=== PATIENT | male | born 1980 | race Caucasian/White ===

== ENCOUNTER 2024-04-05 17:40 | Emergency (ER) | payer BC, SELFPAY ==
[2024-04-05 17:42] VITALS: BP 140/87; PULSE 82; TEMP 36.8; O2SAT 98; BMI 28.9
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
[2024-04-05] MEDS: ACETAMINOPHEN 500 MG TABLET 1000 MG PO (19:54)
[2024-04-05] MEDS: ONDANSETRON 4 MG RAPDIS TABLET SL (19:54)
[2024-04-05] MEDS: IBUPROFEN 400 MG TABLET 800 MG PO (19:54)
== END 2024-04-05 19:57 ==
PROVIDERS: Emergency Provider Student in an Organized Health Care Education/Training Program
DX: S06.0X0A Concussion without loss of consciousness, initial encounter (principal); S16.1XXA Strain of muscle, fascia and tendon at neck level, initial encounter; S00.81XA Abrasion of other part of head, initial encounter; Y08.89XA Assault by other specified means, initial encounter
CPT/HCPCS: 12011; 70450; 72125; 99285; Q0162

== ENCOUNTER 2024-05-15 14:31 | Outpatient (RCR) | payer BC, SELFPAY | END 2024-05-24 07:38 | disposition home or self-care (01) | LOC: PT 14:31 | PROVIDERS: Visit Provider Orthopaedic Surgery | DX: M25.562 Pain in left knee (principal) | CPT/HCPCS: 97110; 97112; 97162; 97530 ==

== ENCOUNTER 2024-09-01 20:55 | Emergency (ER) | payer BC, SELFPAY ==
[2024-09-01 20:59] VITALS: BP 141/94; PULSE 90; TEMP 36.6; O2SAT 96; BMI 30.4
--- OUTSIDE RECORDS SUMMARY | 2024-09-01 21:03 | XMS_ITS | CCD ---
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 Name Role Phone TERESE, DR MEENA Murillo Attending Unavailable TERESE, DR MEENA Murillo Consulting Unavailable REQUEST, NONE LISTED Primary Care Unavaila glenny GUDINO, DR MEENA Murillo Admitting Unavailable LUCI COREAS Consulting Unavailable BJORN JONES Attending Unavailable BJORN JONES Consulting Unavailable BJORN JONES Admitting Unavailable REQUEST, NONE LISTED Primary Care UnavailRudy Ashby Attending Unavailable [facility] Services Primary Care Provider DO Milind Harvey Attending Provider Milind Harvey DO Attending Provider [facility] Services Primary Care Unavaila Milind Cobb Admitting Unavailable Milind Harvey Attending Unavailable [facility] Services Primary Care Unavaila Milind Cobb Admitting Unavailable Milind Harvey Attending Unavailable [facility] Services Primary Care Unavaila Reza Hopper Admitting Unavailab Reza Obrien Attending Unavailab Milind Arriaga Admitting Unavailable [facility] Services Primary Care Unavaila Milind Cobb Attending Unavailable [facility] Services Primary Care Unavaila Milind Cobb Admitting Unavailable Milind Harvey Attending Unavailable Medications Current Medications Medication Drug Class(es) Dates Sig (Normalized) Sig (Original) acetaminophen 500 mg oral tablet (1 source) Start: 05-02-2024 take 2 tablets by mouth every six hours as needed for pain Acetaminophen (Tylenol Extra Strength) 500 mg tablet Active 1000 MG PO Every 6 hours as needed for pain May 02, 2024 12:00am ibuprofen 200 mg oral capsule (3 sources) Nonsteroidal Anti-inflammatory Drug Start: 02-19-2024 Ibuprofen (Motrin Ib) 200 mg capsule Active 800 MG PO Every 8 hours as needed for pain February 19, 2024 12:00am Start: 02-19-2024 take 1 capsule by [facility] every six hours Ibuprofen (Motrin Ib) 200 mg capsule Active 200 MG PO Every 6 hours February 19, 2024 12:00am Completed/Discontinued Medications Medication Drug Class(es) Dates Sig (Normalized) Sig (Original) meloxicam 15 mg oral tablet (1 source) Nonsteroidal Anti-inflammatory Drug Start: 02-20-2024 End: 05-02-2024 take 1 tablet by mouth once daily Meloxicam 15 mg tablet Discontinued 15 MG PO Daily February 20, 2024 12:00am May 02, 2024 2:54pm Problems Active Problems Problem Classification Problem Date Documented Da te Episodic/Chronic Joint disorders and dislocations; trauma-related (3 sources) Derangement of left knee; Translations: [Unspecified internal derangement of left knee] Onset: 04-10-2024 02-19-2024 Chronic Other non-traumatic joint disorders (3 sources) Pain in right knee; Translations: [Right knee pain] 02-19-2024 Episodic Comment on above: from an anccident Substance-related disorders (5 sources) Other stimulant abuse, uncomplicated; Translations: [Cannabis abuse, uncomplicated] Onset: 10-21-2021 Chronic Past or Other Problems Problem Classification Problem Date Documented Da te Episodic/Chronic E Codes: Fall (1 source) Fall (on) (from) unspecified stairs and steps, initial encounter; Translations: [FALL ON FROM UNS STAIRS STEPS INIT] Onset: 05-16-2021 Episodic Joint disorders and dislocations; trauma-related (3 sources) Other tear of medial meniscus, current injury, left knee, initial encounter; Translations: [Tear of medial meniscus of left knee] Onset: 05-07-2024 04-14-2024 Episodic Other injuries and conditions due to external causes (3 sources) Unspecified injury of left elbow, initial encounter; Translations: [UNSPECIFIED INJURY LT ELBOW INITIAL] Onset: 05-14-2021 Episodic Other non-traumatic joint disorders (1 source) Pain in left knee; Translations: [Pain in left knee] Onset: 02-19-2024 Episodic Sprains and strains (10 sources) Injury of articular cartilage of right knee joint; Translations: [Sprain of other specified parts of right knee, initial encounter] Onset: 04-10-2024 02-19-2024 Episodic Superficial injury; contusion (1 source) Contusion of left elbow, initial encounter; Translations: [CONTUSION LEFT ELBOW INITIAL ENC] Onset: 05-16-2021 Episodic Results Test Name Value Interpretation Reference Range Facility Drug Screen,Urineon 05-07-19 Amphetamine Screen,Urine Negative Normal Negative [facility] Comment on above: Performed By: #### U RDS #### [address] Barbiturate Screen,Urine Negative Normal Negative [facility] Comment on above: Performed By: #### U RDS #### [place] [address] [place] Benzodiazepines Screen,Urine Negative Normal Negative [facility] Comment on above: Performed By: #### U RDS #### [place] [address] [place] Cannabinoid Screen,Urine Positive High Negative [facility] Comment on above: Result Comment: Thes e are unconfirmed results and should not be used for legal purposes. Drug Cut-Off Concentration: AMPH 1000 ng/mL KEV 200 ng/mL ALCON 200 ng/mL COCM 300 ng/mL OP 300 ng/mL PCP 25 ng/mL THC 20 ng/mL PERFORMED BY: [place] [address] PATHOLOGIST SIGNAL CONSTRUCTOR INDIO MOREIRA M.D. Performed By: #### U RDS #### [place] [address] [place] Cocaine Screen,Urine Negative Normal Negative [facility] Comment on above: Performed By: #### U RDS #### [place] [address] [place] Opiate Screen,Urine Negative Normal Negative [facility] Comment on above: Performed By: #### U RDS #### [place] [address] [place] Phencyclidine Screen,Urine Negative Normal Negative [facility] Comment on above: Performed By: #### U RDS #### [facility] [address] Alanine aminotransferase [En zymatic activity/volume] in Serum or PlasmaOrdered By: Milind Harvey on 05-02-2024 ALT [Catalytic activity/Vol] Alanine aminotransferase [Enzymatic activity/volume] in Serum or Plasma 7-[address] [facility] Albumin [Mass/volume] in Ser um or Plasma by Bromocresol green (BCG) dye binding methoOrdered By: Milind Harvey on 05-02-2024 Albumin BCG dye [Mass/Vol] Albumin [Mass/volume] in Serum or Plasma by Bromocresol green (BCG) dye binding metho 3.5-5.[address] [facility] Alkaline phosphatase [Enzyma tic activity/volume] in Serum or PlasmaOrdered By: Milind Harvey on 05-02-2024 ALP [Catalytic activity/Vol] Alkaline phosphatase [Enzymatic activity/volume] in Serum or Plasma 34-[address] [facility] Aspartate aminotransferase [ Enzymatic activity/volume] in Serum or PlasmaOrdered By: Milind Harvey on 05-02-2024 AST [Catalytic activity/Vol] Aspartate aminotransferase [Enzymatic activity/volume] in Serum or Plasma 13-[address] [facility] Basophils Auto (Bld) [#/Vol] Ordered By: Milind Harvey on 05-02-2024 Basophils (Bld) [#/Vol] Automated basoph il count 0.0-0.[address] [facility] Basophils/100 WBC Auto (Bld) Ordered By: Milind Harvey on 05-02-2024 Basophils/100 WBC (Bld) Automated basophil % . [facility] Bilirubin.total [Mass/volume ] in Serum or PlasmaOrdered By: Milind Harvey on 05-02-2024 Bilirubin [Mass/Vol] Bilirubin.total [Mass/volume] in Serum or Plasma 0.3-1.[address] [facility] CMP with reflex to A1Con Albumin [Mass/Vol] 4.6 g/dL Normal 3.5-5.7 [facility] Comment on above: Performed By: #### C MP wRFX A1C, CBC #### [facility] [address] Albumin/Globulin [Mass ratio] 1.8 {ratio} Normal [facility] Comment on above: Performed By: #### C MP wRFX A1C, CBC #### [facility] [address] ALP [Catalytic activity/Vol] 62 U/L Normal 34-104 [facility] Comment on above: Result Comment: PERF ORMED BY: [place] [address] PATHOLOGIST SIGNAL CONSTRUCTOR INDIO MOREIRA M.D. Performed By: #### C MP wRFX A1C, CBC #### [address] ALT [Catalytic activity/Vol] 18 U/L Normal 7-52 [facility] Comment on above: Performed By: #### C MP wRFX A1C, CBC #### [address] Anion gap [Moles/Vol] 11.3 mmol/L Normal 6.0-15.0 [facility] Comment on above: Performed By: #### C MP wRFX A1C, CBC #### [address] AST [Catalytic activity/Vol] 17 U/L Normal 13-39 [facility] Comment on above: Performed By: #### C MP wRFX A1C, CBC #### [place] [address] [place] Bilirubin [Mass/Vol] 0.4 mg/dL Normal 0.3-1.0 [facility] Comment on above: Performed By: #### C MP wRFX A1C, CBC #### [facility] [address] [place] [address] [place] Calcium [Mass/Vol] 9.2 mg/dL Normal 8.6-10.3 [facility] Comment on above: Performed By: #### C MP wRFX A1C, CBC #### [facility] [address] [place] [address] [place] Chloride [Moles/Vol] 108 mmol/L High 98-107 [facility] Comment on above: Performed By: #### C MP wRFX A1C, CBC #### [address] CO2 [Moles/Vol] 23.6 mmol/L Normal 21.0-31.0 [facility] Comment on above: Performed By: #### C MP wRFX A1C, CBC #### [address] Creatinine [Mass/Vol] 0.81 mg/dL Normal 0.70-1.30 [facility] Comment on above: Performed By: #### C MP wRFX A1C, CBC #### [place] [address] [place] GFR/1.73 sq M.predicted MDRD (S/P/Bld) [Vol rate/Area] mL/min/{1.73_m2} Normal [facility] Comment on above: Performed By: #### C MP wRFX A1C, CBC #### [address] Globulin (S) [Mass/Vol] 2.6 g/dL Normal [facility] Comment on above: Performed By: #### C MP wRFX A1C, CBC #### [place] [address] [place] Glucose [Mass/Vol] 92 mg/dL Normal 70-100 [facility] Comment on above: Performed By: #### C MP wRFX A1C, CBC #### [place] [address] [place] Potassium [Moles/Vol] 3.9 mmol/L Normal 3.5-5.1 [facility] Comment on above: Performed By: #### C MP wRFX A1C, CBC #### [address] Protein [Mass/Vol] 7.2 g/dL Normal 6.4-8.9 [facility] Comment on above: Performed By: #### C MP wRFX A1C, CBC #### [facility] [address] Sodium [Moles/Vol] 139 mmol/L Normal 136-145 [facility] Comment on above: Performed By: #### C MP wRFX A1C, CBC #### [facility] [address] Urea nitrogen [Mass/Vol] 14 mg/dL Normal 7-25 [facility] Comment on above: Performed By: #### C MP wRFX A1C, CBC #### [facility] [address] [place] [address] [place] Calcium [Mass/volume] in Ser um or PlasmaOrdered By: Milind Harvey on 05-02-2024 Calcium [Mass/Vol] Calcium [Mass/volume] in Serum or Plasma 8.6-10.[address] [facility] Carbon dioxide, total [Moles /volume] in Serum or PlasmaOrdered By: Milind Harvey on 05-02-2024 CO2 [Moles/Vol] Carbon dioxide, total [Moles/volume] in Serum or Plasma 21.0-31.[address] [facility] Chloride [Moles/volume] in S ying or PlasmaOrdered By: Milind Harvey on 05-02-2024 Chloride [Moles/Vol] Chloride [Moles/volume] in Serum or Plasma High 98-[address] [facility] Complete Blood Count Auto Di ffon 05-02-2024 Basophils (Bld) [#/Vol] 0.1 10*3/uL Normal 0.0-0.2 [facility] Comment on above: Result Comment: PERF ORMED BY: [place] [address] PATHOLOGIST SIGNAL CONSTRUCTOR INDIO MOREIRA M.D. Performed By: #### C MP wRFX A1C, CBC #### [facility] [address] [place] [address] [place] Basophils/100 WBC (Bld) 0.7 % Normal . [facility] Comment on above: Performed By: #### C MP wRFX A1C, CBC #### [facility] [address] [place] [address] [place] Eosinophils (Bld) [#/Vol] 0.2 10*3/uL Normal 0.0-0.45 [facility] Comment on above: Performed By: #### C MP wRFX A1C, CBC #### [address] Eosinophils/100 WBC (Bld) 2.2 % Normal . [facility] Comment on above: Performed By: #### C MP wRFX A1C, CBC #### [address] Erythrocyte distribution width (RBC) [Ratio] 13.1 % Normal 12.0-14.[address] [facility] Comment on above: Performed By: #### C MP wRFX A1C, CBC #### [address] Hematocrit (Bld) [Volume fraction] 41.1 % Normal 38.8-50.0 [facility] Comment on above: Performed By: #### C MP wRFX A1C, CBC #### [address] Hemoglobin (Bld) [Mass/Vol] 14.3 g/dL Normal 13.0-17.0 [facility] Comment on above: Performed By: #### C MP wRFX A1C, CBC #### [address] Lymphocytes (Bld) [#/Vol] 2.9 10*3/uL Normal 1.00-4.8 [facility] Comment on above: Performed By: #### C MP wRFX A1C, CBC #### [place] [address] [place] Lymphocytes/100 WBC (Bld) 33.6 % Normal . [facility] Comment on above: Performed By: #### C MP wRFX A1C, CBC #### [address] MCH (RBC) [Entitic mass] 30.7 pg Normal 27.5-35.2 [facility] Comment on above: Performed By: #### C MP wRFX A1C, CBC #### [facility] [address] MCV (RBC) [Entitic vol] 88.4 fL Normal 83.5-101 [facility] Comment on above: Performed By: #### C MP wRFX A1C, CBC #### [address] Mean Corpuscular HGB Conc 34.7 g/dL Normal 32.5-35.6 [facility] Comment on above: Performed By: #### C MP wRFX A1C, CBC #### [address] Monocytes (Bld) [#/Vol] 0.6 10*3/uL Normal 0.0-0.8 [facility] Comment on above: Performed By: #### C MP wRFX A1C, CBC #### [address] Monocytes/100 WBC (Bld) 7.2 % Normal . [facility] Comment on above: Performed By: #### C MP wRFX A1C, CBC #### [address] Neutrophils (Bld) [#/Vol] 4.9 10*3/uL Normal 1.8-7.7 [facility] Comment on above: Performed By: #### C MP wRFX A1C, CBC #### [place] [address] [place] Neutrophils/100 WBC (Bld) 56.3 % Normal . [facility] Comment on above: Performed By: #### C MP wRFX A1C, CBC #### [place] [address] [place] NRBC% 0.1 /100{WBC} Normal 0-0.5 [facility] Comment on above: Performed By: #### C MP wRFX A1C, CBC #### [address] Platelet mean volume (Bld) [Entitic vol] 7.3 fL Normal 6.6-10.[address] [facility] Comment on above: Performed By: #### C MP wRFX A1C, CBC #### [facility] [address] [place] [address] [place] Platelets (Bld) [#/Vol] 305 10*3/uL Normal 150-450 [facility] Comment on above: Performed By: #### C MP wRFX A1C, CBC #### [facility] [address] [place] [address] [place] RBC (Bld) [#/Vol] 4.65 10*6/uL Normal 3.90-5.60 [facility] Comment on above: Performed By: #### C MP wRFX A1C, CBC #### [facility] [address] [place] [id number] [facility] WBC (Bld) [#/Vol] 8.7 10*3/uL Normal 4.1-10.5 [facility] Comment on above: Performed By: #### C MP wRFX A1C, CBC #### [facility] [address] Creatinine [Mass/volume] in Serum or PlasmaOrdered By: Milind Harvey on 05-02-2024 Creatinine [Mass/Vol] Creatinine [Mass/volume] in Serum or Plasma 0.70-1.[address] [facility] ECG 12 lead ECGon 05-02-2024 ECG 12 lead ECG [facility] [place] [address] Electrocardiograph Report Signed Patient: Michael Macedo MR#: [id number] 2 : 1980 Acct:[id number] Age/Sex: 44 / M ADM Date: 05/02/24 Loc: Room: Type: [facility] Attending Dr: Milind Harvey DO Ordering Provider: Milind Harvey DO Date of Service: 05/02/24 ECG/ECG 12 lead ECG: Pre op Copies to: Test Reason : Blood Pressure : */* mmHG Vent. Rate : 76 BPM Atrial Rate : 76 BPM P-R Int : 178 ms QRS Dur : 88 ms QT Int : 360 ms P-R-T Axes : 58 43 30 degrees QTcB Int : 405 ms Normal sinus rhythm Normal ECG When compared with ECG of 29-Jul-2016 09:52, No significant change was found Confirmed by LITO EVANS [facility], JOSEFINA ([id number]) on 05/03/2024 12:46:29 PM Referred By: Electronically Signed By: JOSEFINA CAMPBELL MD FAC Transcribed By: MUS Signed By Josefina Campbell MD, [facility] 05/03/24 1246 Normal [facility] Eosinophils Auto (Bld) [#/Vo l]Ordered By: Milind Harvey on 05-02-2024 Eosinophils (Bld) [#/Vol] Automated eosinophil count 0.0-0.[address] [facility] Eosinophils/100 WBC Auto (Bl d)Ordered By: Milind Harvey on 05-02-2024 Eosinophils/100 WBC (Bld) Automated eosinophil % . [facility] Erythrocyte distribution wid th Auto (RBC) [Ratio]Ordered By: Milind Harvey on 05-02-2024 Erythrocyte distribution width (RBC) [Ratio] Erythrocyte distribution width [Ratio] by Automated count 12.0-14.[address] [facility] Globulin Calc (S) [Mass/Vol] Ordered By: Milind Harvey on 05-02-2024 Globulin (S) [Mass/Vol] Serum globulin measurement by calculation (mass/volume) [facility] Glucose [Mass/volume] in Ser um or PlasmaOrdered By: Milind Harvey on 05-02-2024 Glucose [Mass/Vol] Glucose [Mass/volume] in Serum or Plasma 70-[address] [facility] Hematocrit Auto (Bld) [Volum e fraction]Ordered By: Milind Harvey on 05-02-2024 Hematocrit (Bld) [Volume fraction] Hematocrit [Volume Fraction] of Blood by Automated count 38.8-50.[address] [facility] Hemoglobin [Mass/volume] in BloodOrdered By: Milind Harvey on 05-02-2024 Hemoglobin (Bld) [Mass/Vol] Hemoglobin [Mass/volume] in Blood 13.0-17.[address] [facility] Leukocytes [#/volume] correc miguel for nucleated erythrocytes in Blood by Automated counOrdered By: Milind Harvey on 05-02-2024 WBC corrected for nucl RBC Auto (Bld) [#/Vol] Leukocytes [#/volume] corrected for nucleated erythrocytes in Blood by Automated coun 4.1-10.[address] [facility] Lymphocytes Auto (Bld) [#/Vo l]Ordered By: Milind Harvey on 05-02-2024 Lymphocytes (Bld) [#/Vol] Lymphocytes [#/volume] in Blood by Automated count 1.00-4.[address] [facility] Lymphocytes/100 WBC Auto (Bl d)Ordered By: Milind Harvey on 05-02-2024 Lymphocytes/100 WBC (Bld) Lymphocytes/100 leukocytes in Blood by Automated count . [facility] MCH Auto (RBC) [Entitic mass ]Ordered By: Milind Harvey on 05-02-2024 MCH (RBC) [Entitic mass] MCH [Entitic ma ss] by Automated count 27.5-35.[address] [facility] MCHC Auto (RBC) [Mass/Vol]Or dered By: Milind Harvey on 05-02-2024 MCHC (RBC) [Mass/Vol] MCHC [Mass/volume] by Automated count 32.5-35.[address] [facility] MCV Auto (RBC) [Entitic vol] Ordered By: Milind Harvey on 05-02-2024 MCV (RBC) [Entitic vol] MCV [Entitic vol ume] by Automated count 83.5-[address] [facility] Monocytes Auto (Bld) [#/Vol] Ordered By: Milind Harvey on 05-02-2024 Monocytes (Bld) [#/Vol] Automated blood monocyte count 0.0-0.[address] [facility] Monocytes/100 WBC Auto (Bld) Ordered By: Milind Harvey on 05-02-2024 Monocytes/100 WBC (Bld) Automated monocyte % . [facility] Neutrophils Auto (Bld) [#/Vo l]Ordered By: Milind Harvey on 05-02-2024 Neutrophils (Bld) [#/Vol] Neutrophils [#/volume] in Blood by Automated count 1.8-7.[address] [facility] Neutrophils/100 WBC Auto (Bl d)Ordered By: Milind Harvey on 05-02-2024 Neutrophils/100 WBC (Bld) Automated neutrophil % . [facility] No Panel InformationOrdered By: Milind Harvey on 05-02-2024 Estimated GFR (CKD-EPI) > 60.0 mL/Min [facility] Creatinine Clearance (Chem N/A [facility] Nucleated erythrocytes [Pres ence] in Blood by Automated countOrdered By: Milind Harvey on 05-02-2024 Nucleated RBC Auto Ql (Bld) Nucleated erythrocytes [Presence] in Blood by Automated count 0-0.[address] [facility] Platelet mean volume Auto (B ld) [Entitic vol]Ordered By: Milind Harvey on 05-02-2024 Platelet mean volume (Bld) [Entitic vol] Platelet mean volume [Entitic volume] in Blood by Automated count 6.6-10.[address] [facility] Platelets Auto (Bld) [#/Vol] Ordered By: Milind Harvey on 05-02-2024 Platelets (Bld) [#/Vol] Platelets [#/vol ume] in Blood by Automated count 150-[address] [facility] Potassium [Moles/volume] in Serum or PlasmaOrdered By: Milind Harvey on 05-02-2024 Potassium [Moles/Vol] Potassium [Moles/volume] in Serum or Plasma 3.5-5.[address] [facility] Protein [Mass/volume] in Ser um or PlasmaOrdered By: Milind Harvey on 05-02-2024 Protein [Mass/Vol] Protein [Mass/volume] in Serum or Plasma 6.4-8.[address] [facility] RBC Auto (Bld) [#/Vol]Ordere d By: Milind Harvey on 05-02-2024 RBC (Bld) [#/Vol] Erythrocytes [#/volume] in Blood by Automated count 3.90-5.[address] [facility] Serum or plasma albumin/glob ulin mass ratioOrdered By: Milind Harvey on 05-02-2024 Albumin/Globulin [Mass ratio] Serum or plasma albumin/globulin mass ratio [facility] Serum or plasma anion gap de terminationOrdered By: Milind Harvey on 05-02-2024 Anion gap [Moles/Vol] Serum or plasma anion gap determination 6.0-15.[address] [facility] Sodium [Moles/volume] in Ser um or PlasmaOrdered By: Milind Harvey on 05-02-2024 Sodium [Moles/Vol] Sodium [Moles/volume] in Serum or Plasma 136-[address] [facility] Urea nitrogen [Mass/volume] in Serum or PlasmaOrdered By: Milind Harvey on 05-02-2024 Urea nitrogen [Mass/Vol] Urea nitrogen [Mass/volume] in Serum or Plasma 7-[address] [facility] WBC Auto (Bld) [#/Vol]Ordere d By: Milind Harvey on 05-02-2024 WBC (Bld) [#/Vol] Leukocytes [#/volume] in Blood by Automated count 4.1-10.[address] [facility] MR knee LT wo conon 04-11-20 MR knee LT wo con [facility] [place] [address] MRI Report Signed Patient: Michael Macedo MR#: [id number] 2 : 1980 Acct:[id number] Age/Sex: 43 / M ADM Date: 04/10/24 Loc: MR Room: Type: [facility] Attending Dr: Milind Harvey DO Copies to: Milind Harvey DO Ordering Provider: Milind Harvey DO Date of Service: 04/10/24 MR/MR knee LT wo con: S83.8X2A - Sprain of other specified parts of left knee, ... MR knee LT wo con 04/10/2024 4:25 PM SIGNS AND SYMPTOMS: Pain and popping sensation in left knee after injury PROTOCOL: Multiplanar multisequence MR images of the left knee without contrast COMPARISON: 02/19/2024 FINDINGS: Fluid: No significant joint effusion. Medial compartment: Medial meniscus: There is a mildly complex obliquely oriented tear of the medial meniscus from the posterior horn through the anterior horn. There is a displaced fragment posteriorly measuring 7 mm in greatest dimension paralleling the undersurface of the posterior cruciate ligament adjacent to the medial tibial spine. There is an accompanying para meniscal cyst measuring 2.4 x 1.5 x 0.8 cm in greatest dimension. Medial collateral ligament: There is edema along the medial collateral ligament suggesting a grade 1 medial collateral ligament sprain. The ligament is otherwise grossly intact.. Medial femoral condyle cartilage: Preserved. Medial tibial plateau cartilage: Preserved. Lateral compartment: Lateral meniscus: Intact. Lateral collateral ligament: Intact. Lateral femoral condyle cartilage: Preserved. Lateral tibial plateau cartilage: Preserved. Posterolateral corner: Popliteus tendon: Intact. Popliteofibular ligament: Intact. Proximal tibiofibular joint: Preserved. Anterior compartment: Alignment: Normal. Quadriceps tendon: Intact. There is mild edema along the quadriceps fat pad suggesting quadriceps fat pad impingement. Patellar tendon: Intact. Retinaculum: Medial intact. Lateral intact. Patellar cartilage: Preserved. Trochlea: Preserved. . Plica: There is a 1 cm plica extending towards the medial aspect of the patellofemoral joint space. Hoffa fat pad: Normal. Intercondylar compartment: Anterior cruciate ligament: Intact. Posterior cruciate ligament: Intact. Bones (other than subarticular marrow): Normal. Muscles: Normal. Vessels: Normal. Nerves: Normal. MR/MR knee LT wo con IMPRESSION: There is a mildly complex obliquely oriented tear of the medial meniscus from the posterior horn through the anterior horn. There is a displaced fragment posteriorly measuring 7 mm in greatest dimension paralleling the undersurface of the posterior cruciate ligament adjacent to the medial tibial spine. There is an accompanying para meniscal cyst measuring 2.4 x 1.5 x 0.8 cm in greatest dimension. There is edema along the medial collateral ligament suggesting a grade 1 medial collateral ligament sprain. The ligament is otherwise grossly intact. There is mild edema along the quadriceps fat pad suggesting quadriceps fat pad impingement. Impression dictated by: Meena Mckinney M.D.04/11/2024 8:17 AM Dictation Location: [place] [address] Transcribed By: [facility] 04/11/24816 Dictated By: Meena Mckinney II, MD 04/11/24 0803 Signed By: 04/11/24 08 Normal [facility] 04-10-2024 [facility] Main [place] [id number] XRay Report Signed Patient: Michael Macedo MR#: [id number] 2 : 1980 Acct:[id number] Age/Sex: 43 / M ADM Date: 04/10/24 [facility]: [facility]: [facility]: Milind Harvey DO Copies to: Milind Harvey DO Ordering Provider: Milind Harvey DO Date of Service: 04/10/24 XR/XR orbits: TO MAKE SURE ORBITS ARE CEAR FOR MRI PLAIN FILM OF ORBITS HISTORY: Assess for metallic foreign body. FINDINGS: No metallic foreign body is seen. The orbits are symmetrical without abnormality. No acute bony process is seen. No soft tissue abnormality identified. XR/XR orbits IMPRESSION: NO METALLIC FOREIGN BODY THE ORBITS. Impression dictated by: Rudy Nielsen M.D.04/10/2024 5:10 PM Dictation Location: [facility]- Transcribed By: [facility] 04/10/241709 Dictated By: Rudy Nielsen DO 04/10/241709 Signed By: 04/10/241709 Normal [facility] XR knee LT 4V*on 02-19-2024 XR knee LT 4V* [facility] [address] [place] [address] XRay Report Signed Patient: Michael Macedo MR#: [id number] : 1980 Acct:[id number] Age/Sex: 43 / M ADM Date: 02/19/24 Loc: [facility] Room: [facility] Dr: Milind Harvey DO Copies to: Milind Harvey DO Ordering Provider: Milind Harvey DO Date of Service: 02/19/24 XR/XR knee RT 2V: M25.562 - Pain in left knee ([id number]) XR/XR knee LT 4V*: M25.562 - Pain in left knee 4 views left knee HISTORY: Anterior medial left knee pain for 2 weeks. Twisting injury No joint effusion. Adequate alignment. No acute fracture. No significant degeneration or soft tissue abnormality. No patellar subluxation. XR/XR knee RT 2V IMPRESSION: Unremarkable exam. 2 views of the right knee No patellar subluxation. Adequate clear spaces. No significant degeneration acute bony findings. No soft tissue abnormality. IMPRESSION: Unremarkable exam. Impression dictated by: Rudy Nielsen M.D.02/19/2024 3:13 PM Dictation Location: [place] [address] Transcribed By: [facility] 02/19/241512 Dictated By: Rudy Nielsen DO 02/19/241511 Signed By: 02/19/241512 Normal [facility] Registrationon 07-27-2022 Registration [id number]#1.00CD:127 Normal [facility] Registration [id number]#1.00CD:127 Normal [facility] In office Testingon 07-25-19 23 In office Testing [id number]#1.00CD:127 Normal [facility] In office Testingon 07-08-19 23 In office Testing [id number]#1.00CD:127 Normal [facility] XR ELBOW LT MIN 3 VIEWSon XR ELBOW LT MIN 3 VIEWS EXAM: XR ELBOW L T MIN 3 VIEWS HISTORY: Fall downstairs COMPARISON: None. TECHNIQUE: 3 views FINDINGS: No osseous lesion, fracture, dislocation or subluxation. Joint spaces are normal. No visualized effusion. No visualized soft tissue edema. IMPRESSION: Normal x-rays Electronically authenticated by: LUCI COREAS Date: 2021-05-13 22:45 Normal [facility] Vital Signs Date Time Vital Sign Value Performing Clinician Rob leija 04-14-2024 12:50-050 Body height 172.72 cm Services [facility] [employer] Work Phone: [facility] 04-14-2024 12:50-050 Body mass index (BMI) [Ratio] 28.8 kg/m2 Services [facility] Work Phone: [facility] 04-14-2024 12:50-050 Body weight 86.18 kg Services [facility] [employer] Phone: [facility] Encounters Encounter Date Encounter Type Care Provider Facility Start: 08-28-2024 ambulatory Services [facility] Facility:[facility] Start: 05-07-2024 End: 05-07-2024 ambulatory Milind Harvey Facility:[facility] Start: 05-02-2024 End: 05-02-2024 ambulatory [facility] Work Phone: [facility] Work Phone: Start: 05-02-2024 Encounter for preprocedural laboratory examination Milind Harvey [facility] Start: 05-02-2024 End: 05-02-2024 Patient encounter procedure Services [facility] Work Phone: [facility] Work Phone: Start: 04-14-2024 End: 04-14-2024 Encounter for other preprocedural examination Services [facility] Work Phone: [facility] Start: 04-14-2024 End: 04-14-2024 Patient encounter procedure Services [facility] Work Phone: [facility] Work Phone: Start: 04-10-2024 End: 04-10-2024 Patient encounter procedure Services [facility] Work Phone: [facility] [place] Work Phone: Start: 04-10-2024 End: 04-10-2024 ambulatory Services [facility] Facility:[facility] Start: 02-19-2024 End: 02-19-2024 ambulatory Services [facility] Work Phone: [facility] Work Phone: Start: 02-19-2024 End: 02-19-2024 Patient encounter procedure Services [facility] Work Phone: [facility] Work Phone: Start: 07-27-2022 End: 07-28-2022 ambulatory Rudy PAEZ Facility:[facility] Start: 10-21-2021 End: 10-21-2021 ambulatory BJORN JONES Facility:[facility] Start: 05-14-2021 End: 05-14-[address] MEENA GUDINO Facility:[facility] Procedures Date Procedure Procedure Detail Performing Clinician Start: 04-10-2024 X-ray of both orbits Se rvices [facility] Phone: Start: 04-10-2024 MRI of left knee Servic es [facility] Phone: Start: 02-19-2024 X-ray of left knee, four views Services [facility] Phone: Start: 02-19-2024 X-ray of right knee, two views Services [facility] Phone: Plan of Treatment Date Care Activity Detail Author Start: 02-19-2024 X-ray of left knee, four views XR knee LT 4V* [facility] Start: 02-19-2024 X-ray of right knee, two views XR knee RT 2V [facility] Start: 02-19-2024 XR Knee - left [address] [facility] Start: 02-19-2024 XR Knee - right [address] [facility] MR Knee - left WO contrast F [facility] Payers Date Payer Category Payer Unknown [id number] Self-pay 1980 Unknown [id number] 2.16.84 [id number] 1980 Unknown [id number] 2.16.84 [id number] 1980 Unknown [id number] 2.16.8 [id number] 1959 Unknown [id number] Unknown [id number] 2.16.8 [id number] Unknown [id number] 2.16.8 [id number] Unknown [id number] 2.16.8 [id number] Unknown [id number] 2.16.8 [id number] Unknown [id number] 2.16.8 [id number] Social History Date Type Detail Facility Tobacco smoking stat [facility] Unknown if ever smoked [facility] Work Phone: Start: 1980 Sex Assigned At Male F [facility] Start: 05-02-2024 Tobacco smoking stat [facility] Ex-smoker (finding) [facility] Start: 05-03-2024 Sex Male (finding) [facility] Evaluation note 02-19-2024 Note Date & Type Note Facility 02-19-2024 Evaluation note Diagnosis Onset Date Resolution Injury of meniscus of left knee acute February 18 10:52am Injury of meniscus of left knee acute April 14, 024 12:17pm Tear of medial meniscus of left knee acute April 14, 024 12:17pm Pre-op examination noneactive Decemb er 2023 12:17pm [facility] Work Phone: Evaluation note Note Date & Type Note Facility Evaluation note Diagnosis Onset Date Injury of meniscus of right knee acute [facility] Work Phone: Evaluation note Note Date & Type Note Facility Evaluation note Diagnosis Onset Date Injury of meniscus of left knee acute [facility] Work Phone: Summary Purpose Family History No Family History Records Found Relationship Condition Age at Onset Recorded Date/T claudia Not Specified No pertinent family history Unknown Advance Directives No Advanced Directives Records Found Advance Directive Response Recorded Date/ Time Advance Directives No February 16, 2020 5:37pm Chief Complaint and Reason for Visit Chief Complaint NEW RT KNEE PAIN FRO M INJURY NX M25.561 - Pain in right knee Reason for Visit Injury of meniscus o f right knee Chief Complaint NEW RT KNEE PAIN FRO M INJURY NX M25.561 - Pain in right knee Reason for Visit Injury of meniscus o f left knee Chief Complaint Admit Date NEW RT KNEE PAIN FROM INJURY NX February 19, 2024 10:52am M25.561 - Pain in right knee February 10:54am S83.8X2A M23.92 April 10, 2024 4:23pm MRI RESULTS [facility] April 14, 2024 12:17pm Knee Pain May 02, 2024 2 :38pm Reason for Visit Admit Date Injury of meniscus of left knee February 19, 2024 10:52am Injury of meniscus of left knee April 14, 2024 12:17pm Tear of medial meniscus of left knee Dec ember 2023 12:17pm Pre-op examination April 14, 2024 12:17pm Additional Source Comments (unrecognized sect ion and content) No Status Records FoundNo Status Records FoundNo Status Records Found INFORMATION SOURCE (unrecogn ized section and content) DATE CREATED AUTHOR 10/24/2021 [facility] DATE CREATED AUTHOR AUTHOR'S ORGANIZ ATION 07/28/2022 Delgado Kadeem [facility] DATE CREATED AUTHOR AUTHOR'S ORGANIZ ATION 08/30/2024 [facility] Care Teams (unrecognized sec tion and content) Team Status: Active Member Role Status Dates Services [facility] Primary Care Provider Active Team Status: Inactive Member Role Status Dates Services [facility] Primary Care Provider Active Start: February 19, 2024 End: February 19, 2024 Milind Harvey DO Attending Provider Active St art: February 19, 2024 End: February 19, 2024 Team Status: Active Member Role Status Dates Services [facility] Primary Care Provider Active Start: February 19, 2024 Milind Harvey DO Attending Provider Active St art: February 19, 2024 Team Status: Inactive Member Role Status Dates Services [facility] Primary Care Provider Active Start: April 10, 2024 End: April 10, 2024 Milind Harvey DO Attending Provider Active St art: April 10, 2024 End: April 10, 2024 Team Status: Inactive Member Role Status Dates Services [facility] Primary Care Provider Active Start: April 14, 2024 End: April 14, 2024 Milind Harvey DO Attending Provider Active St art: April 14, 2024 End: April 14, 2024 Team Status: Inactive Member Role Status Dates Services [facility] Primary Care Provider Active Start: May 02, 2024 End: May 02, 2024 Milind Harvey DO Attending Provider Active St art: May 02, 2024 End: May 02, 2024 Goals (unrecognized section and content) Goals may be documented in a n alternate sectionGoals may be documented in an alternate sectionGoals may be documented in an alternate section FOR RECORDS PERTAINING TO PATIENTS WHO ARE OR HAVE BEEN ENROLLED IN A CHEMICAL DEPENDENCY/SUBSTANCEABUSE PROGRAM, SOME INFORMATION MAY BE OMITTED. This clinical summary was aggregated from multiple sources. Caution should be exercised in using it in the provision of clinical care. This summary normalizes information from multiple sources, and as a consequence, information in this document may materially change the coding, format and clinical context of patient data. In addition, data may be omitted in some cases. CLINICAL DECISIONS SHOULD BE BASED ON THE PRIMARY CLINICAL RECORDS. [employer] provides no warranty or guarantee of the accuracy or completeness of information in this document.
--- NOTE | 2024-09-01 21:06 | PC.NURSE ---
PT C/O RIGHT HAND GANGLION CYST IS STARTING TO RESTRICT MOVEMENT OF FINGERS. PT STATES HAS WACKED CYST SEVERAL TIMES IN THE PAST AND IT HAS GONE AWAY BUT ALWAYS COMES BACK
--- NOTE | 2024-09-01 21:09 | ED_ITS ---
HPI HPI - General Adult General Chief complaint: Extremity Problem, Nontraumatic Stated complaint: right hand pain Time Seen by Provider: 09/01/24 21:03 Source: patient Mode of arrival: walk-in Limitations: no limitations History of Present Illness HPI narrative: 44-year-old male presents to the emergency department for a swollen area on the dorsum of his right hand. He said for about a year he has been smashing it but it keeps coming back. He has not yet sought medical care for this issue. No specific trauma to it and his fingers have had good strength and full range of motion. Related Data Home Medications ?Medication ?Instructions ?Recorded ?Confirmed No Known Home Medications 04/05/2408/14 Allergies Allergy/AdvReac Type Severity Reaction Status Date / Time No Known Drug Allergies Allergy Verified 09/01/24 21:04 Review of Systems ROS Narrative A ten point review of systems is negative except as noted above. PFSH PFSH Social History Little interest or pleasure in doing things: not at all Feeling down, depressed, or hopeless: not at all Exam Narrative Exam Narrative: Nurses note and vital signs reviewed and patient is not hypoxic. General: The patient appears well and in no apparent distress. Patient is resting comfortably on cart. Skin: Warm, dry, no pallor noted. There is no rash noted. Head: Normocephalic, atraumatic Eye: Normal conjunctiva, no drainage Ears, Nose, Mouth, and Throat: oral mucosa is moist. Nares patent. Cardiovascular: Regular Rate and Rhythm Respiratory: Patient is in no distress, no accessory muscle use Back: non-tender GI: Soft and nontender Musculoskeletal: On the dorsum of his right hand is a swollen area approximately 2 cm in diameter. It is slightly fluctuant. No erythema or open area or drainage and his fingers have full range of motion. Neurological: A&O, normal speech Psychiatric: Cooperative Constitutional Vital Signs, click to edit/add: Last Vital Signs Temp 97.8 F 09/01/24 20:59 Pulse 90 09/01/24 20:59 Resp 18 09/01/24 20:59 BP 141/94 H 09/01/24 20:59 Pulse Ox 96 09/01/24 20:59 O2 Del Method Room Air 09/01/24 20:59 Course Vital Signs Vital signs: Vital Signs Temperature 97.8 F 09/01/24 20:59 Pulse Rate 90 09/01/24 20:59 Respiratory Rate 18 09/01/24 20:59 Blood Pressure 141/94 H 09/01/24 20:59 Pulse Oximetry 96 09/01/24 20:59 Oxygen Delivery Method Room Air 09/01/24 20:59 Temperature 97.8 F 09/01/24 20:59 Pulse Rate 90 09/01/24 20:59 Respiratory Rate 18 09/01/24 20:59 Blood Pressure 141/94 H 09/01/24 20:59 Pulse Oximetry 96 09/01/24 20:59 Oxygen Delivery Method Room Air 09/01/24 20:59 Medical Decision Making MDM Narrative Medical decision making narrative: My clinical impression is that he has a ganglion cyst. He was recommended follow-up with his established orthopedist for evaluation and probable surgical removal. He was advised that this would not be able to be performed in the [facility] department. Treatment diagnosis and follow-up were discussed with the patient. I have no clinical suspicion of infection. Differential Diagnosis Differential Diagnosis: Ganglion cyst, abscess Discharge Plan Discharge Chief Complaint: Extremity Problem, Nontraumatic Clinical Impression: Ganglion cyst Patient Disposition: Home, Self-Care Time of Disposition Decision: 21:08 Condition: Good Mode of Transportation: Private Vehicle Prescriptions / Home Meds: No Action No Known Home Medications Print Language: Mohawk Instructions: Ganglion Cyst (ED) Additional Instructions: Call your preferred orthopedist for follow-up Referrals: Physician,Non-Staff, [Primary Care Provider] - 1 week
== END 2024-09-01 21:14 | disposition home or self-care (01) ==
PROVIDERS: Emergency Provider Emergency Medicine
DX: M67.441 Ganglion, right hand (principal)
CPT/HCPCS: 99281

== ENCOUNTER 2024-11-06 17:39 | Inpatient (IN) | payer BC, SELFPAY ==
[2024-11-06 17:46] VITALS: BP 148/113; PULSE 106; TEMP 37.1; O2SAT 98; BMI 30.4
--- NOTE | 2024-11-06 17:49 | PC.NURSE ---
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
[2024-11-06 18:14] LABS: Hematocrit 46.0 % (42.0-54.0); Hemoglobin 16.8 g/dL (14.0-18.0); Immature Granulocytes Abs Auto 0.08 10^3/uL (0.00-0.03); Immature Granulocytes Pct Auto 0.4 % (0.0-0.5); Lymphocytes Absolute Auto 1.9 10^3/uL (1.2-3.8); Mean Corpuscular HGB Conc 36.5 g/dL (29.9-35.2); Mean Corpuscular Hemoglobin 31.5 pg (25.9-34.0); Mean Corpuscular Volume 86.3 fL (80.0-94.0); Platelet Count 336 10^3/uL (150-450); Red Blood Count 5.33 10^6/uL (4.70-6.10); White Blood Count 18.1 10^3/uL (4.0-11.0)
[2024-11-06] MEDS: 0.9 % SODIUM CHLORIDE 1,000 ML 1000 ML IV ×2 (18:18→20:40)
[2024-11-06 19:06] LABS: Alanine Aminotransferase 40 U/L (16-63); Albumin Globulin Ratio 1.3; Albumin Level 5.6 g/dL (3.4-5.0); Alkaline Phosphatase 94 U/L (46-116); Anion Gap 23.2; Aspartate Amino Transferase 46 U/L (15-37); Blood Urea Nitrogen 37.0 mg/dL (7.0-18.0); Calcium 11.1 mg/dL (8.5-10.1); Carbon Dioxide 20.2 mmol/L (21.0-32.0); Chloride 91 mmol/L (98-107); Estimated GFR (African America 33 (>=60 mL/min/1.73m^2); Estimated GFR (Non-African Ame 27 (>=60 mL/min/1.73m^2); Globulin 4.2 g/dL; Glucose 124 mg/dL (74-106); Lipase 48.0 U/L (16.0-77.0); Magnesium 2.4 mg/dL (1.8-2.4); Potassium 4.4 mmol/L (3.5-5.1); Sodium 130 mmol/L (136-145); Total Protein 9.8 g/dL (6.4-8.2)
[2024-11-06 19:12] VITALS: BP 141/100; PULSE 96; O2SAT 99
--- NOTE | 2024-11-06 19:24 | CT_ITS ---
The [address] [address] Patient Name: JANICE ARZOLA MRN: [id number] date: 1980 Sex: M Assigned Patient Location: ER Current Patient Location: ER Accession/Order Number: [id number] Exam Date: 11/06/2024 20:00 Report Date: 11/06/2024 20:07 At the request of: BHASKAR GAVIRIA Procedure: CT abdomen pelvis wo con CT Abdomen and Pelvis withoutcontrast TECHNIQUE: Axial imaging with 2-D reconstruction. . The CT exam was performed using one or more the following dose reduction techniques: Automated exposure control, adjustment of the MA and/or Kv according to patient size, or use of the iterative reconstruction technique. COMPARISON: None History: Nausea vomiting and diarrhea LIMITATIONS: None LOWER THORAX Unremarkable LIVER: Unremarkable GALLBLADDER: No gallbladder abnormality identified. BILE DUCTS: No dilatation SPLEEN: Unremarkable PANCREAS: Unremarkable ADRENAL GLANDS: Unremarkable KIDNEYS:Unremarkable AORTA: No abdominal aortic aneurysm identified. RETROPERITONEUM: No significant retroperitoneal abnormalities identified. MESENTERY:Unremarkable STOMACH:Unremarkable SMALL BOWEL: The small bowel loops are nondistended. APPENDIX: The appendix is normal. COLON: Unremarkable URINARY BLADDER: Urinary bladder wall thickening. Underdistention versus cystitis. REPRODUCTIVE SYSTEM: Reproductive structures are unremarkable. PNEUMOPERITONEUM: None PERITONEAL FLUID:None BONY STRUCTURES: Lumbar degeneration ABDOMINAL WALL: Unremarkable CT/CT abdomen pelvis wo con IMPRESSION: Urinary bladder wall thickening. Underdistention versus cystitis. No nephrolithiasis or obstructive uropathy. No bowel obstruction. Impression dictated by: Rudy Nielsen M.D. 11/06/2024 8:07 PM Dictation Location: [employer] Electronically authenticated by: [id number] Date: 11/06/2024 20:07
--- NOTE | 2024-11-06 19:24 | ED.GENADUL1 ---
Documented by User: KHADRA MCALLISTER II 11/06/24 20:25 HPI HPI - General Adult General Chief complaint: Nausea/Vomiting/Diarrhea Stated complaint: CRAMPS EVERYWHERE Time Seen by Provider: 11/06/24 17:44 Source: patient Mode of arrival: walk-in Limitations: no limitations Related Data Home Medications ?Medication ?Instructions ?Recorded ?Confirmed No Known Home Medications 04/05/24 11/06/24 Allergies Allergy/AdvReac Type Severity Reaction Status Date / Time No Known Drug Allergies Allergy Verified 11/06/24 17:48 Opioid HPI Opioid Management Most Recent Opioid Data: Last Pain Assessment 11/06/24, 22:00 Last ORT Total Score 1 11/06/24, 21:29 Last ORT Risk Category Low Risk 11/06/24, 21:29 PFSH PFSH Social History Highest level of school completed/degree received: GED or equivalent Little interest or pleasure in doing things: more than half the days Feeling down, depressed, or hopeless: more than half the days Exam Constitutional Vital Signs, click to edit/add: Last Vital Signs Temp 97.6 F 11/07/24 00:00 Pulse 92 H 11/07/24 00:05 Resp 18 11/07/24 00:00 BP 146/68 H 11/07/24 00:00 Pulse Ox 92 L 11/07/24 00:00 O2 Del Method Room Air 11/07/24 00:00 Course Vital Signs Vital signs: Vital Signs Temperature 98.7 F 11/06/24 17:46 Pulse Rate 106 H 11/06/24 17:46 Respiratory Rate 18 11/06/24 17:46 Blood Pressure 148/113 H 11/06/24 17:46 Pulse Oximetry 98 11/06/24 17:46 Oxygen Delivery Method Room Air 11/06/24 17:46 Temperature 97.6 F 11/07/24 00:00 Pulse Rate 92 H 11/07/24 00:05 Respiratory Rate 18 11/07/24 00:00 Blood Pressure 146/68 H 11/07/24 00:00 Pulse Oximetry 92 L 11/07/24 00:00 Oxygen Delivery Method Room Air 11/07/24 00:00 Medical Decision Making Lab Data Labs: Lab Results 11/06/24 11/06/24 Range/Units 18:05 19:40 WBC 18.1 H (4.0-11.0) 10^3/uL RBC 5.33 (4.70-6.10) 10^6/uL Hgb 16.8 (14.0-18.0) g/dL Hct 46.0 (42.0-54.0) % MCV 86.3 (80.0-94.0) fL MCH 31.5 (25.9-34.0) pg MCHC 36.5 H (29.9-35.2) g/dL RDW 11.8 (11.0-15.0) % Plt Count 336 (150-450) 10^3/uL MPV 9.4 L (9.5-13.5) fL Neut % (Auto) 82.7 H (43.0-75.0) % Lymph % (Auto) 10.7 L (20.5-60.0) % Major % (Auto) 6.0 (1.7-12.0) % Eos % (Auto) 0.0 L (0.9-7.0) % Baso % (Auto) 0.2 (0.2-2.0) % Neut # (Auto) 14.9 H (1.4-6.5) 10^3/uL Lymph # (Auto) 1.9 (1.2-3.8) 10^3/uL Major # (Auto) 1.1 H (0.3-0.8) 10^3/uL Eos # (Auto) 0.0 (0.0-0.7) 10^3/uL Baso # (Auto) 0.0 (0.0-0.1) 10^3/uL Abs Immat Gran (auto) 0.08 H (0.00-0.03) 10^3/uL Imm/Tot Granulo (auto) 0.4 (0.0-0.5) % Sodium 130 L (136-145) mmol/L Potassium 4.4 (3.5-5.1) mmol/L Chloride 91 L (98-107) mmol/L Carbon Dioxide 20.2 L (21.0-32.0) mmol/L Anion Gap 23.2 BUN 37.0 H (7.0-18.0) mg/dL Creatinine 2.62 H (0.70-1.30) mg/dL Est GFR ( Amer) 33 L (>=60 mL/min/1.73m^2) Est GFR (Non-Af Amer) 27 L (>=60 mL/min/1.73m^2) BUN/Creatinine Ratio 14.1 Glucose 124 H (74-106) mg/dL Calcium 11.1 H (8.5-10.1) mg/dL Magnesium 2.4 (1.8-2.4) mg/dL Total Bilirubin 1.2 H (0.2-1.0) mg/dL AST 46 H (15-37) U/L ALT 40 (16-63) U/L Alkaline Phosphatase 94 (46-116) U/L Total Creatine Kinase 827 H* (39-308) U/L Total Protein 9.8 H (6.4-8.2) g/dL Albumin 5.6 H (3.4-5.0) g/dL Globulin 4.2 g/dL Albumin/Globulin Ratio 1.3 Lipase 48.0 (16.0-77.0) U/L Urine Color Yellow (YELLOW) Urine Clarity Sl cloudy (CLEAR) Urine pH 5.5 (5.0-9.0) Ur Specific [place] >=1.030 A (1.005-1.025) Urine Protein 100 A (NEG/TRACE) mg/dL Urine Glucose (UA) Negative (NEGATIVE) mg/dL Urine Ketones 40 A (NEGATIVE) mg/dL Urine Occult Blood Large A (NEGATIVE) Urine Nitrite Negative (NEGATIVE) Urine Bilirubin Small A (NEGATIVE) Urine Urobilinogen 0.2 (0.2-1.0) EU/dL Ur Leukocyte Esterase Negative (NEGATIVE) Urine RBC None seen (0-2) #/HPF Urine WBC 2-5 A (NONE SEEN) #/HPF Ur Squamous Epith Cells Rare (NONE/RARE) #/LPF Urine Crystals Seen A (None Seen) #/HPF Calcium Oxalate Crystal Many Urine Bacteria Small A (NONE SEEN) #/HPF Urine Casts Seen A (NONE SEEN) #/LPF Hyaline Casts Many Urine Mucus None seen (NONE SEEN) Ur Culture Indicated? Yes-[facility] [place] Discharge Plan Discharge Chief Complaint: Nausea/Vomiting/Diarrhea Clinical Impression: Dehydration, LINSEY (acute kidney injury), Nausea & vomiting Patient Disposition: Admitted As Inpatient Condition: Fair Discharge Date/Time: 11/06/24 21:15 Documented by User: Anabel Hong MD 11/07/24 02:19 HPI HPI - General Adult General Chief complaint: Nausea/Vomiting/Diarrhea Stated complaint: CRAMPS EVERYWHERE Time Seen by Provider: 11/06/24 17:44 History of Present Illness HPI narrative: This 44-year-old male presents for evaluation of generalized weakness with diffuse cramping. 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 He states that it was only in the 80s earlier this week but he started to feel generalized weakness. Today he was having trouble standing and doing his job and felt weak and dizzy with leg spasms, back spasms and cramps in his hands and feet. He has been drinking but does not feel he is able to keep up with his fluids. His mucous membranes are dry. He denies any chest pain or shortness of breath. Related Data Home Medications ?Medication ?Instructions ?Recorded ?Confirmed No Known Home Medications 04/05/24 11/06/24 Allergies Allergy/AdvReac Type Severity Reaction Status Date / Time No Known Drug Allergies Allergy Verified 11/06/24 17:48 Opioid HPI Opioid Management Most Recent Opioid Data: Last Pain Assessment 11/06/24, 22:00 Last ORT Total Score 1 11/06/24, 21:29 Last ORT Risk Category Low Risk 11/06/24, 21:29 Review of Systems ROS Status of ROS 10 or more systems reviewed and unremarkable except as noted in history and below PFSH PFSH Social History Highest level of school completed/degree received: GED or equivalent Little interest or pleasure in doing things: more than half the days Feeling down, depressed, or hopeless: more than half the days Exam Narrative Exam Narrative: Vital signs and Nursing Notes reviewed: Patient is afebrile, he is tachycardic with a pulse of 106 and blood pressure is elevated 141/100, he is not hypoxic with pulse ox of 92 to 94% on room air General: Awake, alert, oriented, pale, diaphoretic adult male, no respiratory distress, GCS 15 HEENT: Normocephalic atraumatic, mucous membranes are pink and dry, no scleral icterus noted Neck: Supple, no meningeal signs, no anterior or posterior cervical lymphadenopathy Chest: Lungs are clear to auscultation with good air entry, there is no wheezing rhonchi or rales appreciated no accessory muscle use, patient is speaking in complete sentences-no chest wall tenderness to palpation CVS: Regular rate and rhythm S1-S2, no murmurs rubs or gallops, pulses are brisk and equal bilaterally ABD: Soft, nondistended, nontender, no rebound guarding or rigidity, bowel sounds are normal, no pulsatile masses appreciated Extremities: Moving all extremities, no lower extremity tenderness or swelling noted, negative Homans' sign, pulses are brisk and equal bilaterally Skin: Pale, diaphoretic Neuro: No focal deficits Constitutional Vital Signs, click to edit/add: Last Vital Signs Temp 97.6 F 11/07/24 00:00 Pulse 92 H 11/07/24 00:05 Resp 18 11/07/24 00:00 BP 146/68 H 11/07/24 00:00 Pulse Ox 92 L 11/07/24 00:00 O2 Del Method Room Air 11/07/24 00:00 Course Vital Signs Vital signs: Vital Signs Temperature 98.7 F 11/06/24 17:46 Pulse Rate 106 H 11/06/24 17:46 Respiratory Rate 18 11/06/24 17:46 Blood Pressure 148/113 H 11/06/24 17:46 Pulse Oximetry 98 11/06/24 17:46 Oxygen Delivery Method Room Air 11/06/24 17:46 Temperature 97.6 F 11/07/24 00:00 Pulse Rate 92 H 11/07/24 00:05 Respiratory Rate 18 11/07/24 00:00 Blood Pressure 146/68 H 11/07/24 00:00 Pulse Oximetry 92 L 11/07/24 00:00 Oxygen Delivery Method Room Air 11/07/24 00:00 Medical Decision Making MDM Narrative Medical decision making narrative: This 44-year-old male was seen and evaluated in conjunction with the physician healthcare administrative assistant. He presents for evaluation of diffuse cramps, weakness after being exposed to extreme heat for the past several days at work. He has been drinking fluids. On arrival he was shaking and sweating and nauseated.. He was pale but alert. EKG is a sinus rhythm at 80 bpm. An IV was placed and he was medicated with IV fluids. Blood cultures, CBC with differential and comprehensive metabolic profile as well as urine was ordered. His white count is elevated at 18. Hemoglobin is concentrated at 16.8. Electrolytes are normal with the exception of an elevated BUN and creatinine at 37 and 2.62. The patient does not have a history of diabetes or any kidney disease. This is likely acute kidney injury. Urine is negative for infection. CT scan of the abdomen pelvis without contrast was ordered due to the elevated white count and nausea. The scan of the abdomen pelvis does not show any acute findings. The results of these findings were discussed with the hospitalist and he is excepted for admission to [facility]. He was tolerating fluids prior to being admitted and resting comfortably and was considerably improved. Lab Data Lab results reviewed: Yes I reviewed the patient's lab results Labs: Lab Results 11/06/24 11/06/24 Range/Units 18:05 19:40 WBC 18.1 H (4.0-11.0) 10^3/uL RBC 5.33 (4.70-6.10) 10^6/uL Hgb 16.8 (14.0-18.0) g/dL Hct 46.0 (42.0-54.0) % MCV 86.3 (80.0-94.0) fL MCH 31.5 (25.9-34.0) pg MCHC 36.5 H (29.9-35.2) g/dL RDW 11.8 (11.0-15.0) % Plt Count 336 (150-450) 10^3/uL MPV 9.4 L (9.5-13.5) fL Neut % (Auto) 82.7 H (43.0-75.0) % Lymph % (Auto) 10.7 L (20.5-60.0) % Major % (Auto) 6.0 (1.7-12.0) % Eos % (Auto) 0.0 L (0.9-7.0) % Baso % (Auto) 0.2 (0.2-2.0) % Neut # (Auto) 14.9 H (1.4-6.5) 10^3/uL Lymph # (Auto) 1.9 (1.2-3.8) 10^3/uL Major # (Auto) 1.1 H (0.3-0.8) 10^3/uL Eos # (Auto) 0.0 (0.0-0.7) 10^3/uL Baso # (Auto) 0.0 (0.0-0.1) 10^3/uL Abs Immat Gran (auto) 0.08 H (0.00-0.03) 10^3/uL Imm/Tot Granulo (auto) 0.4 (0.0-0.5) % Sodium 130 L (136-145) mmol/L Potassium 4.4 (3.5-5.1) mmol/L Chloride 91 L (98-107) mmol/L Carbon Dioxide 20.2 L (21.0-32.0) mmol/L Anion Gap 23.2 BUN 37.0 H (7.0-18.0) mg/dL Creatinine 2.62 H (0.70-1.30) mg/dL Est GFR ( Amer) 33 L (>=60 mL/min/1.73m^2) Est GFR (Non-Af Amer) 27 L (>=60 mL/min/1.73m^2) BUN/Creatinine Ratio 14.1 Glucose 124 H (74-106) mg/dL Calcium 11.1 H (8.5-10.1) mg/dL Magnesium 2.4 (1.8-2.4) mg/dL Total Bilirubin 1.2 H (0.2-1.0) mg/dL AST 46 H (15-37) U/L ALT 40 (16-63) U/L Alkaline Phosphatase 94 (46-116) U/L Total Creatine Kinase 827 H* (39-308) U/L Total Protein 9.8 H (6.4-8.2) g/dL Albumin 5.6 H (3.4-5.0) g/dL Globulin 4.2 g/dL Albumin/Globulin Ratio 1.3 Lipase 48.0 (16.0-77.0) U/L Urine Color Yellow (YELLOW) Urine Clarity Sl cloudy (CLEAR) Urine pH 5.5 (5.0-9.0) Ur Specific [place] >=1.030 A (1.005-1.025) Urine Protein 100 A (NEG/TRACE) mg/dL Urine Glucose (UA) Negative (NEGATIVE) mg/dL Urine Ketones 40 A (NEGATIVE) mg/dL Urine Occult Blood Large A (NEGATIVE) Urine Nitrite Negative (NEGATIVE) Urine Bilirubin Small A (NEGATIVE) Urine Urobilinogen 0.2 (0.2-1.0) EU/dL Ur Leukocyte Esterase Negative (NEGATIVE) Urine RBC None seen (0-2) #/HPF Urine WBC 2-5 A (NONE SEEN) #/HPF Ur Squamous Epith Cells Rare (NONE/RARE) #/LPF Urine Crystals Seen A (None Seen) #/HPF Calcium Oxalate Crystal Many Urine Bacteria Small A (NONE SEEN) #/HPF Urine Casts Seen A (NONE SEEN) #/LPF Hyaline Casts Many Urine Mucus None seen (NONE SEEN) Ur Culture Indicated? Yes-[facility] [place] ECG Data Attestation: I personally reviewed and interpreted this ECG as follows: (Sinus rhythm 80 bpm, normal axis, normal intervals, no acute ST segment elevation or T wave inversion) Discharge Plan Discharge Chief Complaint: Nausea/Vomiting/Diarrhea Clinical Impression: Dehydration, LINSEY (acute kidney injury), Nausea & vomiting Patient Disposition: Admitted As Inpatient Condition: Fair Discharge Date/Time: 11/06/24 21:15
[2024-11-06 19:59] LABS: Glucose Urine UA NEGATIVE (NEGATIVE)
--- NOTE | 2024-11-06 20:24 | ECG_ITS ---
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 Measurements Intervals [place] Rate: 80 P: 71 IN: 152 QRS: 82 QRSD: 86 T: 40 QT: 364 QTc: 400 Interpretive Statements 1100 Sinus rhythm 1102 Sinus arrhythmia 9110 normal ECG No previous ECG available for comparison Electronically Signed On 11-07-2024 6:48:44 EDT by EMILY HINOJOSA M.D.
[2024-11-06 20:37] LABS: Crystals Seen? Seen #/HPF (None Seen)
[2024-11-06 20:38] LABS: Cast Seen? SEEN #/LPF (NONE SEEN)
[2024-11-06 20:40] LABS: Urine Culture Indicated YES-FRMC
[2024-11-06 21:29] VITALS: BP 143/81; PULSE 98; TEMP 36.7; O2SAT 95; BMI 26.3
--- OUTSIDE RECORDS SUMMARY | 2024-11-06 21:30 | XMS_ITS | CCD ---
Author Organization [facility] Care Team Providers Care Communications Attendant Name Role Phone TERESE, DR MEENA Murillo Attending Unavailable TERESE, DR MEENA Murillo Consulting Unavailable REQUEST, NONE LISTED Primary Care Unavailrichard GUDINO, DR MEENA Murillo Admitting Unavailable LUCI COREAS Consulting Unavailable BJORN JONES Attending Unavailable BJORN JONES Consulting Unavailable BJORN JONES Admitting Unavailable RAMIREZ, NONE LISTED Primary Care UnavailRudy Ashby Attending Unavailable [facility], Services Primary Care Provider DO Milind Harvey Attending Provider [phone] Milind Harvey DO Attending Provider [facility] Services Primary Care Unavaila Milind Cobb Admitting Unavailable Milind Harvey Attending Unavailable [facility] Services Primary Care Unavaila Milind Cobb Admitting Unavailable Milind Harvey Attending Unavailable [facility] Services Primary Care Unavaila Reza Hopper Admitting Unavailab Reza Obrien Attending Unavailab Milind Arriaga Admitting Unavailable [facility] Services Primary Care Unavaila Milind Cobb Attending Unavailable [facility] Services Primary Care Unavaila Milind Cobb [...] 12:00am Start: 02-19-2024 take 1 capsule by [facility] every six hours Ibuprofen (Motrin Ib) 200 [...] 05-07-19 Amphetamine Screen,Urine Negative Normal Negative [facility] Comment on above: Performed By: #### U RDS #### [place] [address] [place] Barbiturate Screen,Urine Negative Normal Negative [facility] Comment on above: Performed By: #### U RDS #### [place] [address] [place] Benzodiazepines Screen,Urine Negative Normal Negative [facility] Comment on above: Performed By: #### U RDS #### [place] [address] [place] Cannabinoid Screen,Urine Positive High Negative [facility] Comment on above: Result Comment: Thes e are unconfirmed results and should not be used for legal purposes. Drug Cut-Off Concentration: AMPH 1000 ng/mL KEV 200 ng/mL ALCON 200 ng/mL COCM 300 ng/mL OP 300 ng/mL PCP 25 ng/mL THC 20 ng/mL PERFORMED BY: [place] [address] PATHOLOGIST REVENUE CYCLE ADMINISTRATOR INDIO MOREIRA M.D. Performed By: #### U RDS #### [place] [address] [place] Cocaine Screen,Urine Negative Normal Negative [facility] Comment on above: Performed By: #### U RDS #### [place] [address] [place] Opiate Screen,Urine Negative Normal Negative [facility] Comment on above: Performed By: #### U RDS #### [place] [address] [place] Phencyclidine Screen,Urine Negative Normal Negative [facility] Comment on above: Performed By: #### U RDS #### [facility] [address] [id number] [facility] Alanine aminotransferase [En zymatic activity/volume] in Serum or PlasmaOrdered By: Milind Harvey on 05-02-2024 ALT [Catalytic activity/Vol] Alanine aminotransferase [Enzymatic activity/volume] in Serum or Plasma 7-52 [facility] Albumin [Mass/volume] in Ser um or Plasma by Bromocresol green (BCG) dye binding methoOrdered By: Milind Harvey on 05-02-2024 Albumin BCG dye [Mass/Vol] Albumin [Mass/volume] in Serum or Plasma by Bromocresol green (BCG) dye binding metho 3.5-5.7 [facility] Alkaline phosphatase [Enzyma tic activity/volume] in Serum or PlasmaOrdered By: Milind Harvey on 05-02-2024 ALP [Catalytic activity/Vol] Alkaline phosphatase [Enzymatic activity/volume] in Serum or Plasma 34-104 [facility] Aspartate aminotransferase [ Enzymatic activity/volume] in Serum or PlasmaOrdered By: Milind Harvey on 05-02-2024 AST [Catalytic activity/Vol] Aspartate aminotransferase [Enzymatic activity/volume] in Serum or Plasma 13-39 [facility] Basophils Auto (Bld) [#/Vol] Ordered By: Milind Harvey on 05-02-2024 Basophils (Bld) [#/Vol] Automated basoph il count 0.0-0.2 [facility] Basophils/100 WBC Auto (Bld) Ordered By: Milind Harvey on 05-02-2024 Basophils/100 WBC (Bld) Automated basophil % . [facility] Bilirubin.total [Mass/volume ] in Serum or PlasmaOrdered By: Milind Harvey on 05-02-2024 Bilirubin [Mass/Vol] Bilirubin.total [Mass/volume] in Serum or Plasma 0.3-1.0 [facility] CMP with reflex to A1Con Albumin [Mass/Vol] 4.6 g/dL Normal 3.5-5.7 [facility] Comment on above: Performed By: #### C MP wRFX A1C, CBC #### [address] Albumin/Globulin [Mass ratio] 1.8 {ratio} Normal [facility] Comment on above: Performed By: #### C MP wRFX A1C, CBC #### [address] ALP [Catalytic activity/Vol] 62 U/L Normal 34-104 [facility] Comment on above: Result Comment: PERF ORMED BY: [place] [address] PATHOLOGIST REVENUE CYCLE ADMINISTRATOR INDIO MOREIRA M.D. Performed By: #### C MP wRFX A1C, CBC #### [address] ALT [Catalytic activity/Vol] 18 U/L Normal 7-52 [facility] Comment on above: Performed By: #### C MP wRFX A1C, CBC #### [address] Anion gap [Moles/Vol] 11.3 mmol/L Normal 6.0-15.0 [facility] Comment on above: Performed By: #### C MP wRFX A1C, CBC #### [address] AST [Catalytic activity/Vol] 17 U/L Normal 13-39 [facility] Comment on above: Performed By: #### C MP wRFX A1C, CBC #### [place] [address] [place] Bilirubin [Mass/Vol] 0.4 mg/dL Normal 0.3-1.0 [facility] Comment on above: Performed By: #### C MP wRFX A1C, CBC #### [place] [address] [place] Calcium [Mass/Vol] 9.2 mg/dL Normal 8.6-10.3 [facility] Comment on above: Performed By: #### C MP wRFX A1C, CBC #### [place] [address] [place] Chloride [Moles/Vol] 108 mmol/L High 98-107 [facility] Comment on above: Performed By: #### C MP wRFX A1C, CBC #### [address] CO2 [Moles/Vol] 23.6 mmol/L Normal 21.0-31.0 [facility] Comment on above: Performed By: #### C MP wRFX A1C, CBC #### [address] Creatinine [Mass/Vol] 0.81 mg/dL Normal 0.70-1.30 [facility] Comment on above: Performed By: #### C MP wRFX A1C, CBC #### [place] [address] [place] GFR/1.73 sq M.predicted MDRD (S/P/Bld) [Vol rate/Area] mL/min/{1.73_m2} Normal [facility] Comment on above: Performed By: #### C MP wRFX A1C, CBC #### [address] Globulin (S) [Mass/Vol] 2.6 g/dL Normal [facility] Comment on above: Performed By: #### C MP wRFX A1C, CBC #### [place] [address] [place] Glucose [Mass/Vol] 92 mg/dL Normal 70-100 [facility] Comment on above: Performed By: #### C MP wRFX A1C, CBC #### [place] [address] [place] Potassium [Moles/Vol] 3.9 mmol/L Normal 3.5-5.1 [facility] Comment on above: Performed By: #### C MP wRFX A1C, CBC #### [address] Protein [Mass/Vol] 7.2 g/dL Normal 6.4-8.9 [facility] Comment on above: Performed By: #### C MP wRFX A1C, CBC #### [facility] [address] Sodium [Moles/Vol] 139 mmol/L Normal 136-145 [facility] Comment on above: Performed By: #### C MP wRFX A1C, CBC #### [facility] [address] Urea nitrogen [Mass/Vol] 14 mg/dL Normal 7-25 [facility] Comment on above: Performed By: #### C MP wRFX A1C, CBC #### [facility] [address] [place] [address] [place] Calcium [Mass/volume] in Ser um or PlasmaOrdered By: Milind Harvey on 05-02-2024 Calcium [Mass/Vol] Calcium [Mass/volume] in Serum or Plasma 8.6-10.3 [facility] Carbon dioxide, total [Moles /volume] in Serum or PlasmaOrdered By: Milind Harvey on 05-02-2024 CO2 [Moles/Vol] Carbon dioxide, total [Moles/volume] in Serum or Plasma 21.0-31.0 [facility] Chloride [Moles/volume] in S ying or PlasmaOrdered By: Milind Harvey on 05-02-2024 Chloride [Moles/Vol] Chloride [Moles/volume] in Serum or Plasma High 98-107 [facility] Complete Blood Count Auto Di ffon 05-02-2024 Basophils (Bld) [#/Vol] 0.1 10*3/uL Normal 0.0-0.2 [facility] Comment on above: Result Comment: PERF ORMED BY: [facility] [address] [place] [address] PATHOLOGIST REVENUE CYCLE ADMINISTRATOR INDIO MOREIRA M.D. Performed By: #### C MP wRFX A1C, CBC #### [facility] [address] [place] [address] [place] Basophils/100 WBC (Bld) 0.7 % Normal . [facility] Comment on above: Performed By: #### C MP wRFX A1C, CBC #### [facility] [address] Eosinophils (Bld) [#/Vol] 0.2 10*3/uL Normal 0.0-0.45 [facility] Comment on above: Performed By: #### C MP wRFX A1C, CBC #### [address] Eosinophils/100 WBC (Bld) 2.2 % Normal . [facility] Comment on above: Performed By: #### C MP wRFX A1C, CBC #### [address] Erythrocyte distribution width (RBC) [Ratio] 13.1 % Normal 12.0-14.8 [facility] Comment on above: Performed By: #### C MP wRFX A1C, CBC #### [address] Hematocrit (Bld) [Volume fraction] 41.1 % Normal 38.8-50.0 [facility] Comment on above: Performed By: #### C MP wRFX A1C, CBC #### [address] Hemoglobin (Bld) [Mass/Vol] 14.3 g/dL Normal 13.0-17.0 [facility] Comment on above: Performed By: #### C MP wRFX A1C, CBC #### [place] [address] [place] Lymphocytes (Bld) [#/Vol] 2.9 10*3/uL Normal 1.00-4.8 [facility] Comment on above: Performed By: #### C MP wRFX A1C, CBC #### [place] [address] [place] Lymphocytes/100 WBC (Bld) 33.6 % Normal . [facility] Comment on above: Performed By: #### C MP wRFX A1C, CBC #### [address] MCH (RBC) [Entitic mass] 30.7 pg Normal 27.5-35.2 [facility] Comment on above: Performed By: #### C MP wRFX A1C, CBC #### [address] MCV (RBC) [Entitic vol] 88.4 fL Normal 83.5-101 [facility] Comment on above: Performed By: #### C MP wRFX A1C, CBC #### [address] Mean Corpuscular HGB Conc 34.7 g/dL Normal 32.5-35.6 [facility] Comment on above: Performed By: #### C MP wRFX A1C, CBC #### [address] Monocytes (Bld) [#/Vol] 0.6 10*3/uL Normal 0.0-0.8 [facility] Comment on above: Performed By: #### C MP wRFX A1C, CBC #### [address] Monocytes/100 WBC (Bld) 7.2 % Normal . [facility] Comment on above: Performed By: #### C MP wRFX A1C, CBC #### [address] Neutrophils (Bld) [#/Vol] 4.9 10*3/uL Normal 1.8-7.7 [facility] Comment on above: Performed By: #### C MP wRFX A1C, CBC #### [address] Neutrophils/100 WBC (Bld) 56.3 % Normal . [facility] Comment on above: Performed By: #### C MP wRFX A1C, CBC #### [place] [address] [place] NRBC% 0.1 /100{WBC} Normal 0-0.5 [facility] Comment on above: Performed By: #### C MP wRFX A1C, CBC #### [facility] [address] [place] [address] [place] Platelet mean volume (Bld) [Entitic vol] 7.3 fL Normal 6.6-10.1 [facility] Comment on above: Performed By: #### C MP wRFX A1C, CBC #### [facility] [address] [id number] [place] Platelets (Bld) [#/Vol] 305 10*3/uL Normal 150-450 [facility] Comment on above: Performed By: #### C MP wRFX A1C, CBC #### [facility] [address] [id number] [place] RBC (Bld) [#/Vol] 4.65 10*6/uL Normal 3.90-5.[address] [facility] Comment on above: Performed By: #### C MP wRFX A1C, CBC #### [facility] [address] [place] [address] [place] WBC (Bld) [#/Vol] 8.7 10*3/uL Normal 4.1-10.5 [facility] Comment on above: Performed By: #### C MP wRFX A1C, CBC #### [facility] [address] [id number] [facility] Creatinine [Mass/volume] in Serum or PlasmaOrdered By: Milind Harvey on 05-02-2024 Creatinine [Mass/Vol] Creatinine [Mass/volume] in Serum or Plasma 0.70-1.30 [facility] ECG 12 lead ECGon 05-02-2024 ECG 12 lead ECG [facility] [place] [address] Electrocardiograph Report Signed Patient: Michael Macedo MR#: [id number] 2 : 1980 Acct:[id number] Age/Sex: 44 / M ADM Date: 05/02/24 Loc: PS Room: Type: [facility] Attending Dr: Milind Harvey DO Ordering Provider: [...] change was found Confirmed by LITO EVANS [facility], JOSEFINA ([id number]) on 05/03/2024 12:46:29 PM Referred By: Electronically Signed By: JOSEFINA CAMPBELL MD [facility] Transcribed By: MUS Signed By Josefina Campbell MD, [facility] 05/03/24 1246 Normal [facility] Eosinophils Auto (Bld) [#/Vo l]Ordered By: Milind Harvey on 05-02-2024 Eosinophils (Bld) [#/Vol] Automated eosinophil count 0.0-0.45 [facility] Eosinophils/100 WBC Auto (Bl d)Ordered By: Milind Harvey on 05-02-2024 Eosinophils/100 WBC (Bld) Automated eosinophil % . [facility] Erythrocyte distribution wid th Auto (RBC) [Ratio]Ordered By: Milind Harvey on 05-02-2024 Erythrocyte distribution width (RBC) [Ratio] Erythrocyte distribution width [Ratio] by Automated count 12.0-14.8 [facility] Globulin Calc (S) [Mass/Vol] Ordered By: Milind Harvey on 05-02-2024 Globulin (S) [Mass/Vol] Serum globulin measurement by calculation (mass/volume) [facility] Glucose [Mass/volume] in Ser um or PlasmaOrdered By: Milind Harvey on 05-02-2024 Glucose [Mass/Vol] Glucose [Mass/volume] in Serum or Plasma 70-100 [facility] Hematocrit Auto (Bld) [Volum e fraction]Ordered By: Milind Harvey on 05-02-2024 Hematocrit (Bld) [Volume fraction] Hematocrit [Volume Fraction] of Blood by Automated count 38.8-50.0 [facility] Hemoglobin [Mass/volume] in BloodOrdered By: Milind Harvey on 05-02-2024 Hemoglobin (Bld) [Mass/Vol] Hemoglobin [Mass/volume] in Blood 13.0-17.0 [facility] Leukocytes [#/volume] correc miguel for nucleated erythrocytes in Blood by Automated counOrdered By: Milind Harvey on 05-02-2024 WBC corrected for nucl RBC Auto (Bld) [#/Vol] Leukocytes [#/volume] corrected for nucleated erythrocytes in Blood by Automated coun 4.1-10.5 [facility] Lymphocytes Auto (Bld) [#/Vo l]Ordered By: Milind Harvey on 05-02-2024 Lymphocytes (Bld) [#/Vol] Lymphocytes [#/volume] in Blood by Automated count 1.00-4.8 [facility] Lymphocytes/100 WBC Auto (Bl d)Ordered By: Milind Harvey on 05-02-2024 Lymphocytes/100 WBC (Bld) Lymphocytes/100 leukocytes in Blood by Automated count . [facility] MCH Auto (RBC) [Entitic mass ]Ordered By: Milind Harvey on 05-02-2024 MCH (RBC) [Entitic mass] MCH [Entitic ma ss] by Automated count 27.5-35.2 [facility] MCHC Auto (RBC) [Mass/Vol]Or dered By: Milind Harvey on 05-02-2024 MCHC (RBC) [Mass/Vol] MCHC [Mass/volume] by Automated count 32.5-35.6 [facility] MCV Auto (RBC) [Entitic vol] Ordered By: Milind Harvey on 05-02-2024 MCV (RBC) [Entitic vol] MCV [Entitic vol ume] by Automated count 83.5-101 [facility] Monocytes Auto (Bld) [#/Vol] Ordered By: Milnid Harvey on 05-02-2024 Monocytes (Bld) [#/Vol] Automated blood monocyte count 0.0-0.8 [facility] Monocytes/100 WBC Auto (Bld) Ordered By: Milind Harvey on 05-02-2024 Monocytes/100 WBC (Bld) Automated monocyte % . [facility] Neutrophils Auto (Bld) [#/Vo l]Ordered By: Milind Harvey on 05-02-2024 Neutrophils (Bld) [#/Vol] Neutrophils [#/volume] in Blood by Automated count 1.8-7.7 [facility] Neutrophils/100 WBC Auto (Bl d)Ordered By: Milind Harvey on 05-02-2024 Neutrophils/100 WBC (Bld) Automated neutrophil % . [facility] No Panel InformationOrdered By: Milind Harvey on 05-02-2024 Estimated GFR (CKD-EPI) > 60.0 mL/Min [facility] Creatinine Clearance (Chem N/A [facility] Nucleated erythrocytes [Pres ence] in Blood by Automated countOrdered By: Milind Harvey on 05-02-2024 Nucleated RBC Auto Ql (Bld) Nucleated erythrocytes [Presence] in Blood by Automated count 0-0.5 [facility] Platelet mean volume Auto (B ld) [Entitic vol]Ordered By: Milind Harvey on 05-02-2024 Platelet mean volume (Bld) [Entitic vol] Platelet mean volume [Entitic volume] in Blood by Automated count 6.6-10.1 [facility] Platelets Auto (Bld) [#/Vol] Ordered By: Milind Harvey on 05-02-2024 Platelets (Bld) [#/Vol] Platelets [#/vol ume] in Blood by Automated count 150-450 [facility] Potassium [Moles/volume] in Serum or PlasmaOrdered By: Milind Harvey on 05-02-2024 Potassium [Moles/Vol] Potassium [Moles/volume] in Serum or Plasma 3.5-5.1 [facility] Protein [Mass/volume] in Ser um or PlasmaOrdered By: Milind Harvey on 05-02-2024 Protein [Mass/Vol] Protein [Mass/volume] in Serum or Plasma 6.4-8.9 [facility] RBC Auto (Bld) [#/Vol]Ordere d By: Milind Harvey on 05-02-2024 RBC (Bld) [#/Vol] Erythrocytes [#/volume] in Blood by Automated count 3.90-5.60 [facility] Serum or plasma albumin/glob ulin mass ratioOrdered By: Milind Harvey on 05-02-2024 Albumin/Globulin [Mass ratio] Serum or plasma albumin/globulin mass ratio [facility] Serum or plasma anion gap de terminationOrdered By: Milind Harvey on 05-02-2024 Anion gap [Moles/Vol] Serum or plasma anion gap determination 6.0-15.0 [facility] Sodium [Moles/volume] in Ser um or PlasmaOrdered By: Milind Harvey on 05-02-2024 Sodium [Moles/Vol] Sodium [Moles/volume] in Serum or Plasma 136-145 [facility] Urea nitrogen [Mass/volume] in Serum or PlasmaOrdered By: Milind Harvey on 05-02-2024 Urea nitrogen [Mass/Vol] Urea nitrogen [Mass/volume] in Serum or Plasma 7-25 [facility] WBC Auto (Bld) [#/Vol]Ordere d By: Milind Harvey on 05-02-2024 WBC (Bld) [#/Vol] Leukocytes [#/volume] in Blood by Automated count 4.1-10.5 [facility] MR knee LT wo conon 04-11-20 MR knee LT wo con [facility] [place] [address] MRI Report Signed Patient: Michael Macedo MR#: [id number] 2 : 1980 Acct:[id number] Age/Sex: 43 / M ADM Date: 04/10/24 Loc: MR Room: Type: [facility] Attending Dr: Milind Harvey DO Copies to: [...] Meena Mckinney M.D.04/11/2024 8:17 AM Dictation Location: [place] [address] Transcribed By: [facility] 04/11/24816 Dictated By: Meena Mckinney II, MD 04/11/24 08 Signed By: 04/11/24816 Normal [facility] 04-10-2024 [facility] [address] [address] XRay Report Signed Patient: Michael Macedo MR#: [id number] 2 : 1980 Acct:[id number] Age/Sex: 43 / M ADM Date: 04/10/24 Loc: Room: [facility] Attending Dr: Milind Harvey DO Copies to: [...] Rudy Nielsen M.D.04/10/2024 5:10 PM Dictation Location: [place] [address] Transcribed By: [facility] 04/10/241709 Dictated By: Rudy Nielsen DO 04/10/241709 Signed By: 04/10/241709 Normal [facility] XR knee LT 4V*on 02-19-2024 XR knee LT 4V* [facility] [address] [place] [address] XRay Report Signed Patient: Michael Macedo MR#: [id number] : 1980 Acct:[id number] Age/Sex: 43 / M ADM Date: 02/19/24 Loc: [facility] Room: [facility] Attending Dr: Milind Harvey DO Copies to: Milind Harvey DO Ordering Provider: Milind Harvey DO Date of Service: 02/19/24 XR/XR knee RT 2V: M25.562 - Pain in left knee ([id number]) XR/XR knee LT 4V*: M25.562 - Pain [...] Rudy Nielsen M.D.02/19/2024 3:13 PM Dictation Location: [place] [address] Transcribed By: [facility] 02/19/241512 Dictated By: Rudy Nielsen DO 02/19/241511 Signed By: 02/19/241512 Normal [facility] Registrationon 07-27-2022 Registration [id number] 43#1.00CD:127 Normal [facility] Registration [id number]#1.00CD:127 Normal [facility] In office Testingon 07-25-19 23 In office Testing [id number] 5#1.00CD:127 Normal [facility] In office Testingon 07-08-19 23 In office Testing [id number] 9#1.00CD:127 Normal [facility] XR ELBOW LT MIN 3 VIEWSon XR ELBOW LT MIN 3 VIEWS EXAM: XR ELBOW L T MIN 3 VIEWS HISTORY: Fall downstairs COMPARISON: None. TECHNIQUE: 3 views FINDINGS: No osseous lesion, fracture, dislocation or subluxation. Joint spaces are normal. No visualized effusion. No visualized soft tissue edema. IMPRESSION: Normal x-rays Electronically authenticated by: LUCI COREAS Date: 2021-05-13 22:45 Normal [facility] Vital Signs Date Time Vital Sign Value Performing Clinician Faci lity 04-14-2024 12:50-0500 Body height 172.72 cm Services [facility] Work Phone: [facility] 04-14-2024 12:50-0500 Body mass index (BMI) [Ratio] 28.8 kg/m2 Services [facility] [employer] Phone: [facility] 04-14-2024 12:50-0500 Body weight 86.18 kg Services [facility] [employer] Phone: [facility] Encounters Encounter Date Encounter Type Care Provider Facility Start: 09-04-2024 ambulatory Services [facility] Facility:[facility] Start: 05-07-2024 End: 05-07-2024 ambulatory Milind Richard Candice Facility:[facility] Start: 05-02-2024 End: 05-02-2024 ambulatory [facility] Work Phone: [facility] Work Phone: Start: 05-02-2024 Encounter for preprocedural laboratory examination Milind Harvey [facility] Start: 05-02-2024 End: 05-02-2024 Patient encounter procedure Services [facility] Work Phone: [facility]-Pre-Surgical Testing Work Phone: Start: 04-14-2024 End: 04-14-2024 Encounter for other preprocedural examination Services [facility] Work Phone: [facility] Start: 04-14-2024 End: 04-14-2024 Patient encounter procedure Services [facility] Work Phone: [facility] Work Phone: Start: 04-10-2024 End: 04-10-2024 Patient encounter procedure Services [facility] Work Phone: [facility] [place] Work Phone: Start: 04-10-2024 End: 04-10-2024 ambulatory Services [facility] Facility:[facility] Start: 02-19-2024 End: 02-19-2024 ambulatory Services [facility] Work Phone: [facility] Work Phone: Start: 02-19-2024 End: 02-19-2024 Patient encounter procedure [facility] Work Phone: [facility] Work Phone: Start: 07-27-2022 End: 07-28-2022 ambulatory Rudy PAEZ Facility:[facility] Start: 10-21-2021 End: 10-21-2021 ambulatory BJORN JONES Facility:[facility] Start: 05-14-2021 End: 05-14-[address] MEENA GUDINO Facility:[facility] Procedures Date Procedure Procedure Detail Performing Clinician Start: 04-10-2024 X-ray of both orbits Se rvices [email or web address] Phone: Start: 04-10-2024 MRI of left knee Servic es [email or web address] Phone: Start: 02-19-2024 X-ray of left knee, four views [email or web address] Phone: Start: 02-19-2024 X-ray of right knee, two views [email or web address] Phone: Plan of Treatment Date Care Activity Detail Author Start: 02-19-2024 X-ray of left knee, four views XR knee LT 4V* [facility] Start: 02-19-2024 X-ray of right knee, two views XR knee RT 2V [facility] Start: 02-19-2024 XR Knee - left 4 Views [facility] Start: 02-19-2024 XR Knee - right 2 Views [facility] MR Knee - left WO contrast F [facility] Payers Date Payer Category Payer Unknown [id number] Self-pay 1980 Unknown [id number] 2.16.84 [id number] 1980 Unknown [id number] 2.16.84 [id number] 1980 Unknown [id number] 2.16.8 [id number] 1959 Unknown [id number] Unknown [id number] 2.16.8 [id number] Unknown [id number] 2.16.8 [id number] Unknown [id number] 2.16.8 [id number] Unknown [id number] 2.16.8 [id number] Unknown [id number] 2.16.8 [id number] Social History Date Type Detail Facility Tobacco smoking stat [facility] Unknown if ever smoked [facility] Work Phone: Start: 1980 Sex Assigned At Male [facility] Start: 05-02-2024 Tobacco smoking stat [facility] Ex-smoker (finding) [facility] Start: 05-03-2024 Sex Male (finding) [facility] Evaluation note 02-19-2024 Note Date & Type Note Facility 02-19-2024 Evaluation note Diagnosis Onset Date Resolution Injury of meniscus of left knee acute February 18 10:52am Injury of meniscus of left knee acute April 14, 024 12:17pm Tear of medial meniscus of left knee acute April 14 024 12:17pm Pre-op examination noneactive Decemb er 2023 12:17pm [facility] Work Phone: Evaluation note Note Date & Type Note Facility Evaluation note Diagnosis Onset Date Injury of meniscus of right knee acute [facility] Work Phone: Evaluation note Note Date & Type Note Facility Evaluation note Diagnosis Onset Date Injury of meniscus of left knee acute [facility] Work Phone: Summary Purpose Family History No [...] M23.92 April 10, 2024 4:23pm MRI RESULTS [facility] April 14, 2024 12:17pm Knee Pain May [...] section and content) DATE CREATED AUTHOR 10/24/2021 [facility] DATE CREATED AUTHOR AUTHOR'S ORGANIZ ATION 07/28/2022 [facility] DATE CREATED AUTHOR AUTHOR'S ORGANIZ ATION 11/06/2024 [facility] Care Teams (unrecognized sec tion and content) Team Status: Active Member Role Status Dates [facility] Primary Care Provider Active Team Status: Inactive Member Role Status Dates Services [facility] Primary Care Provider Active Start: February 19, 2024 End: February 19, 2024 Milind Harvey DO Attending Provider Active St art: February 19, 2024 End: February 19, 2024 Team Status: Active Member Role Status Dates Services [facility] Primary Care Provider Active Start: February 19, 2024 Milind Harvey DO Attending Provider Active St art: February 19, 2024 Team Status: Inactive Member Role Status Dates [facility] Primary Care Provider Active Start: April 10, 2024 End: April 10, 2024 Milind Harvey DO Attending Provider Active St art: April 10, 2024 End: April 10, 2024 Team Status: Inactive Member Role Status Dates Services [facility] Primary Care Provider Active Start: April 14, 2024 End: April 14, 2024 Milind Harvey DO Attending Provider Active St art: April 14, 2024 End: April 14, 2024 Team Status: Inactive Member Role Status Dates Services [facility] Primary Care Provider Active Start: May 02, [...] BE BASED ON THE PRIMARY CLINICAL RECORDS. [employer] [facility]. provides no warranty or guarantee of the accuracy or completeness of information in this document.
--- NOTE | 2024-11-06 21:34 | XR_ITS ---
[place] [id number] Patient Name: JANICE ARZOLA MRN: [id number] date: 1980 Sex: M Assigned Patient Location: [place] Current Patient Location: [place] Accession/Order Number: [id number] Exam Date: 11/06/2024 22:23 Report Date: 11/06/2024 22:23 At the request of: JEAN-CLAUDE CALDWELL MD Procedure: XR chest 1V Plain film chest Single view HISTORY: Cough COMPARISON: None FINDINGS: SUPPORT DEVICES: None POSTSURGICAL CHANGES: None HEART: Within normal limits PULMONARY FELICITA: Within normal limits MEDIASTINUM: Unremarkable LUNGS AND PLEURA: No acute lung process, pleural effusion or pneumothorax identified. BONY STRUCTURES: Intact ADDITIONAL FINDINGS None XR/XR chest 1V IMPRESSION: No acute process. Impression dictated by: Rudy Nielsen M.D. 11/06/2024 10:23 PM Dictation Location: [place] [address] Electronically authenticated by: [id number] Y Date: 11/06/2024 22:23
[2024-11-06 22:01] LABS: Creatine Kinase 827 U/L (39-308)
[2024-11-06 23:00] VITALS: PULSE 102
[2024-11-06] MEDS: HEPARIN SODIUM (PORCINE) 5,000 UNIT/ML VIAL 5000 UNIT SUBQ (23:27)
[2024-11-06] MEDS: 0.9 % SODIUM CHLORIDE 1,000 ML 150 ML IV (23:28)
[2024-11-07] VITALS (17 sets, daily range): BP systolic 111–146; BP diastolic 66–80; PULSE 69–112; TEMP 36.4–36.9; O2SAT 92–96
[2024-11-07 05:18] LABS: Hematocrit 38.5 % (42.0-54.0); Hemoglobin 13.6 g/dL (14.0-18.0); Immature Granulocytes Abs Auto 0.04 10^3/uL (0.00-0.03); Immature Granulocytes Pct Auto 0.3 % (0.0-0.5); Lymphocytes Absolute Auto 3.9 10^3/uL (1.2-3.8); Mean Corpuscular HGB Conc 35.3 g/dL (29.9-35.2); Mean Corpuscular Hemoglobin 31.3 pg (25.9-34.0); Mean Corpuscular Volume 88.5 fL (80.0-94.0); Platelet Count 277 10^3/uL (150-450); Red Blood Count 4.35 10^6/uL (4.70-6.10); White Blood Count 12.1 10^3/uL (4.0-11.0)
[2024-11-07 05:46] LABS: Alanine Aminotransferase 33 U/L (16-63); Albumin Globulin Ratio 1.0; Albumin Level 3.5 g/dL (3.4-5.0); Alkaline Phosphatase 70 U/L (46-116); Anion Gap 12.7; Aspartate Amino Transferase 47 U/L (15-37); Blood Urea Nitrogen 27.0 mg/dL (7.0-18.0); Calcium 8.5 mg/dL (8.5-10.1); Carbon Dioxide 25.5 mmol/L (21.0-32.0); Chloride 102 mmol/L (98-107); Estimated GFR (African America >60 (>=60 mL/min/1.73m^2); Estimated GFR (Non-African Ame >60 (>=60 mL/min/1.73m^2); Globulin 3.6 g/dL; Glucose 121 mg/dL (74-106); Potassium 3.2 mmol/L (3.5-5.1); Sodium 137 mmol/L (136-145); Total Protein 7.1 g/dL (6.4-8.2)
[2024-11-07 05:49] LABS: Creatine Kinase 1549 U/L (39-308)
[2024-11-07] MEDS: HEPARIN SODIUM (PORCINE) 5,000 UNIT/ML VIAL 5000 UNIT SUBQ ×3 (06:38→21:40)
[2024-11-07] MEDS: 0.9 % SODIUM CHLORIDE 1,000 ML 150 ML IV (07:26)
--- NOTE | 2024-11-07 09:05 | CM.NOTE ---
Rounds made with Dr. Rich, discussed with pt diagnosis and lab findings. Plan of care discussed with pt, pt will not discharge today and will continue IV fluids. Pt does verbalize he drinks 2 beers per night, Dr. Rich discussed alcohol consumption and dehydration. Dr. Rich will also implement CIWA scale.
--- NOTE | 2024-11-07 09:43 | PM.IMHP1 ---
Internal Medicine - H&P: HPI History of Present Illness Chief complaint: Dehydration LINSEY Narrative: Please be aware that this patient has been accepted by the nighttime team and that this is the first time I see this patient today. This is a 44-year-old male with past medical history of alcohol use of few beers a day last drink was Sunday night, no other past medical history here for weakness and dizziness as well as dehydration over the last few days. Patient states that over the last 4 days, he started complaining of weakness as well as decreased energy levels and body aches and he felt that his muscle were hurting. 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 He states that he drinks enough water however he drinks beer every night. He denies any fever or chills or nausea or vomiting but mentions that he was very dizzy but never had a syncope. He also mentioned that he was very weak and tired and his fatigue has progressed until yesterday when he could not stand anymore and he decided to come to the hospital for further workup and management. Patient denies any drug use labs in the ED were consistent with leukocytosis on his CBC, and LINSEY with BUN of 37 and creatinine of 2.62 as well as acidosis of 20 of bicarb and sodium of 130. His calcium was 11.1. All his labs were consistent with dehydration. His CPK was between 800-1500 compatible with rhabdomyolysis. Today's labs are much better in terms of his renal function which improved as well as his leukocytosis that also improved as well as his calcium. Patient was admitted for rhabdomyolysis and was started on IV hydration. When I saw the patient today he still complains of some bodyaches states that he is still tired and weak. He is on IV hydration. Patient was admitted to medical floor telemetry under our service Review of Systems ROS Status of ROS 10 or more systems reviewed and unremarkable except as noted in history and below PFSH PFS Social History Highest level of school completed/degree received: GED or equivalent Little interest or pleasure in doing things: more than half the days Feeling down, depressed, or hopeless: more than half the days Meds Home Medications and Allergies Home Medications ?Medication ?Instructions ?Recorded ?Confirmed ?Type No Known Home Medications 04/05/24 11/06/24 History Allergies Allergy/AdvReac Type Severity Reaction Status Date / Time No Known Drug Allergies Allergy Verified 11/06/24 17:48 Exam Narrative Exam Narrative: Constitutional: Not in acute distress, alert and oriented x3, lying in bed HEENT: Normocephalic atraumatic, mucous membranes are pink and dry, no scleral icterus noted Neck: Supple, no meningeal signs, no anterior or posterior cervical lymphadenopathy Chest: Lungs are clear to auscultation with good air entry, there is no wheezing rhonchi or rales appreciated no accessory muscle use, patient is speaking in complete sentences-no chest wall tenderness to palpation CVS: Regular rate and rhythm S1-S2, no murmurs rubs or gallops, pulses are brisk and equal bilaterally ABD: Soft, nondistended, nontender, no rebound guarding or rigidity, bowel sounds are normal, no pulsatile masses appreciated Extremities: Moving all extremities, no lower extremity tenderness or swelling noted, negative Homans' sign, pulses are brisk and equal bilaterally Neuro: No focal deficits Constitutional Vital Signs, click to edit/add: Last Vital Signs Temp 98.2 F 11/07/24 07:30 Pulse 82 11/07/24 08:00 Resp 16 11/07/24 07:30 BP 121/66 11/07/24 07:30 Pulse Ox 93 L 11/07/24 07:30 O2 Del Method Room Air 11/07/24 07:30 Internal Medicine - H&P: Reslt Labs Labs: Short CBC 11/06/24 11/07/24 Range/Units 18:05 04:43 WBC 18.1 H 12.1 H (4.0-11.0) 10^3/uL Hgb 16.8 13.6 L (14.0-18.0) g/dL Hct 46.0 38.5 L (42.0-54.0) % Plt Count 336 277 (150-450) 10^3/uL BMP 11/06/24 11/07/24 18:05 04:43 Sodium 130 L 137 Potassium 4.4 3.2 L Chloride 91 L 102 Carbon Dioxide 20.2 L 25.5 BUN 37.0 H 27.0 H Creatinine 2.62 H 1.21 Glucose 124 H 121 H Calcium 11.1 H 8.5 Cardiac Enzymes 11/06/24 11/07/24 Range/Units 18:05 04:43 Total Creatine Kinase 827 H* 1549 H* (39-308) U/L Liver Function 11/06/24 11/07/24 Range/Units 18:05 04:43 Total Bilirubin 1.2 H 0.3 (0.2-1.0) mg/dL AST 46 H 47 H (15-37) U/L ALT 40 33 (16-63) U/L Alkaline Phosphatase 94 70 (46-116) U/L Albumin 5.6 H 3.5 (3.4-5.0) g/dL Urine 11/06/24 Range/Units 19:40 Urine Color Yellow (YELLOW) Urine Clarity Sl cloudy (CLEAR) Urine pH 5.5 (5.0-9.0) Ur Specific [place] >=1.030 A (1.005-1.025) Urine Protein 100 A (NEG/TRACE) mg/dL Urine Glucose (UA) Negative (NEGATIVE) mg/dL Assessment and Plan Assessment and Plan (1) Rhabdomyolysis: (2) LINSEY (acute kidney injury): (3) Dehydration: (4) Prerenal azotemia: Plan Rhabdomyolysis LINSEY the setting of rhabdomyolysis as well as dehydration and prerenal azotemia Hypercalcemia glucose doses in the setting of dehydration - Patient admitted to medical floor telemetry - Continue with NS IV hydration now with 100 mL/h for a total of 3 L - Replete his potassium which is expected given his wasting of potassium given his resolving LINSEY - Placed the patient on CIWA score, his CIWA score today is 0 - Counseled patient on alcohol cessation, also encouraged him to stay hydrated - I discussed the plan with the patient in details. Answered all his questions
[2024-11-07 09:53] LABS: INR 0.98; Prothrombin Time 10.4 sec (9.0-11.6)
[2024-11-07] MEDS: MULTIVITAMIN TABLET 1 TAB PO (09:53)
[2024-11-07] MEDS: FOLIC ACID 1 MG TABLET PO (09:53)
[2024-11-07] MEDS: POTASSIUM CHLORIDE 10 MEQ ER TABLET 20 MEQ PO (09:53)
[2024-11-07] MEDS: 0.9 % SODIUM CHLORIDE 1,000 ML 100 ML IV (14:19)
[2024-11-07 18:52] LABS: A. calcoaceticus-baumannii Cpx NOT DETECTED (NOT DETECTE); Bacteroides fragilis NOT DETECTED (NOT DETECTE); Candida auris NOT DETECTED (NOT DETECTE); Candida glabrata NOT DETECTED (NOT DETECTE); Enterobacterales NOT DETECTED (NOT DETECTE); Enterococcus faecalis NOT DETECTED (NOT DETECTE); Enterococcus faecium NOT DETECTED (NOT DETECTE); Klebsiella aerogenes NOT DETECTED (NOT DETECTE); Klebsiella pneumoniae group NOT DETECTED (NOT DETECTE); Proteus spp. NOT DETECTED (NOT DETECTE); Salmonella spp. NOT DETECTED (NOT DETECTE); Serratia marcescens NOT DETECTED (NOT DETECTE); Staphylococcus epidermidis NOT DETECTED (NOT DETECTE); Staphylococcus lugdunensis NOT DETECTED (NOT DETECTE); Staphylococcus spp. NOT DETECTED (NOT DETECTE); Stenotrophomonas maltophilia NOT DETECTED (NOT DETECTE); Streptococcus pyogenes NOT DETECTED (NOT DETECTE); Streptococcus spp. NOT DETECTED (NOT DETECTE)
[2024-11-07] MEDS: ACETAMINOPHEN 325 MG TABLET 650 MG PO (21:41)
[2024-11-07 23:01] LABS: Source Blood
[2024-11-08] VITALS (7 sets, daily range): BP systolic 96–135; BP diastolic 51–92; PULSE 55–86; TEMP 36.4–36.5; O2SAT 92–94
[2024-11-08 06:13] LABS: Hematocrit 38.4 % (42.0-54.0); Hemoglobin 12.9 g/dL (14.0-18.0); Immature Granulocytes Abs Auto 0.02 10^3/uL (0.00-0.03); Immature Granulocytes Pct Auto 0.3 % (0.0-0.5); Lymphocytes Absolute Auto 3.1 10^3/uL (1.2-3.8); Mean Corpuscular HGB Conc 33.6 g/dL (29.9-35.2); Mean Corpuscular Hemoglobin 30.6 pg (25.9-34.0); Mean Corpuscular Volume 91.2 fL (80.0-94.0); Platelet Count 219 10^3/uL (150-450); Red Blood Count 4.21 10^6/uL (4.70-6.10); White Blood Count 6.8 10^3/uL (4.0-11.0)
[2024-11-08 06:25] LABS: Alanine Aminotransferase 37 U/L (16-63); Albumin Globulin Ratio 1.1; Albumin Level 3.2 g/dL (3.4-5.0); Alkaline Phosphatase 49 U/L (46-116); Anion Gap 9.4; Aspartate Amino Transferase 46 U/L (15-37); Blood Urea Nitrogen 16.0 mg/dL (7.0-18.0); Calcium 8.3 mg/dL (8.5-10.1); Carbon Dioxide 27.9 mmol/L (21.0-32.0); Chloride 107 mmol/L (98-107); Estimated GFR (African America >60 (>=60 mL/min/1.73m^2); Estimated GFR (Non-African Ame >60 (>=60 mL/min/1.73m^2); Globulin 3.0 g/dL; Glucose 108 mg/dL (74-106); Magnesium 2.0 mg/dL (1.8-2.4); Potassium 4.3 mmol/L (3.5-5.1); Sodium 140 mmol/L (136-145); Total Protein 6.2 g/dL (6.4-8.2)
[2024-11-08] MEDS: MULTIVITAMIN TABLET 1 TAB PO (08:46)
[2024-11-08] MEDS: THIAMINE MONONITRATE (VIT B1) 100 MG TABLET PO (08:46)
[2024-11-08] MEDS: FOLIC ACID 1 MG TABLET PO (08:46)
--- NOTE | 2024-11-08 09:34 | P.DS_ITS ---
DS: Providers Provider Date of admission: 11/06/24 21:15 Primary care physician: Non-Staff Physician, Discharging clinician: Driss Rich Anticipated date of discharge: 11/08/24 DS: Diagnosis Discharge Diagnosis (1) Rhabdomyolysis: (2) LINSEY (acute kidney injury): (3) Dehydration: (4) Prerenal azotemia: DS: Summary Hospital Course Hospital Course: Please be aware that this patient has been accepted by the nighttime team and that this is the first time I see this patient today. This is a 44-year-old male with past medical history of alcohol use of few beers a day last drink was Sunday, no other past medical history here for weakness and dizziness as well as dehydration over the last few days. Patient states that over the last 4 days, he started complaining of weakness as well as decreased energy levels and body aches and he felt that his muscle were hurting. 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 He states that he drinks enough water however he drinks beer every night. He denies any fever or chills or nausea or vomiting but mentions that he was very dizzy but never had a syncope. He also mentioned that he was very weak and tired and his fatigue has progressed until yesterday when he could not stand anymore and he decided to come to the hospital for further workup and management. Patient denies any drug use labs in the ED were consistent with leukocytosis on his CBC, and LINSEY with BUN of 37 and creatinine of 2.62 as well as acidosis of 20 of bicarb and sodium of 130. His calcium was 11.1. All his labs were consistent with dehydration. His CPK was between 800-1500 compatible with rhabdomyolysis. Today's labs are much better in terms of his renal function which improved as well as his leukocytosis that also improved as well as his calcium. Patient was admitted for rhabdomyolysis and was started on IV hydration. When I saw the patient today he still complains of some bodyaches states that he is still tired and weak. He is on IV hydration. Patient was admitted to medical floor telemetry under our service. Rhabdomyolysis LINSEY the setting of rhabdomyolysis as well as dehydration and prerenal azotemia Hypercalcemia glucose doses in the setting of dehydration - Patient admitted to medical floor telemetry - Continue with NS IV hydration now with 100 mL/h for a total of 3 L - Replete his potassium which is expected given his wasting of potassium given his resolving LINSEY - Placed the patient on CIWA score, his CIWA score today is 0 - Counseled patient on alcohol cessation, also encouraged him to stay hydrated - I discussed the plan with the patient in details. Answered all his questions 11/08/2024 patient feeling much better, his LINSEY has resolved his leukocytosis has resolved as well. He still complains some soreness however feels much better with him he first came in. He is off IV fluids now drinking a lot of water. I encouraged him to drink as much water as he can and to stay hydrated. I also encouraged him to avoid the heat is much as possible when working. He states that he does not drink alcohol the way I thought and admission. 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 I will make sure to remove that from his documentation. Patient can be additional today he needs to follow-up with his PCP in the next week. He understands agrees with this plan of Status at Discharge Overall status at discharge: patient is back to baseline Time Spent with Patient Time attestation: Total time spent providing and/or coordinating discharge services: Exam Narrative Exam Narrative: Constitutional: Not in acute distress, alert and oriented x3, lying in bed HEENT: Normocephalic atraumatic, mucous membranes are pink and dry, no scleral icterus noted Neck: Supple, no meningeal signs, no anterior or posterior cervical lymphadenopathy Chest: Lungs are clear to auscultation with good air entry, there is no wheezing rhonchi or rales appreciated no accessory muscle use, patient is speaking in complete sentences-no chest wall tenderness to palpation CVS: Regular rate and rhythm S1-S2, no murmurs rubs or gallops, pulses are brisk and equal bilaterally ABD: Soft, nondistended, nontender, no rebound guarding or rigidity, bowel sounds are normal, no pulsatile masses appreciated Extremities: Moving all extremities, no lower extremity tenderness or swelling noted, negative Homans' sign, pulses are brisk and equal bilaterally Neuro: No focal deficits Constitutional Vital Signs, click to edit/add: Last Vital Signs Temp 97.5 F L 11/08/24 08:54 Pulse 63 11/08/24 08:54 Resp 16 11/08/24 08:54 BP 135/92 H 11/08/24 08:54 Pulse Ox 94 L 11/08/24 08:54 O2 Del Method Room Air 11/08/24 08:54 DS: Data Data Completed and Pending Labs on day of discharge: Labs from last 24 hours 11/08/24 11/07/24 11/06/24 05:52 09:15 23:15 WBC 6.8 RBC 4.21 L Hgb 12.9 L Hct 38.4 L MCV 91.2 MCH 30.6 MCHC 33.6 RDW 12.6 Plt Count 219 MPV 9.4 L Neut % (Auto) 43.0 Lymph % (Auto) 45.5 Ellis % (Auto) 8.7 Eos % (Auto) 1.9 Baso % (Auto) 0.6 Neut # (Auto) 2.9 Lymph # (Auto) 3.1 Ellis # (Auto) 0.6 Eos # (Auto) 0.1 Baso # (Auto) 0.0 Abs Immat Gran (auto) 0.02 Imm/Tot Granulo (auto) 0.3 PT 10.4 INR 0.98 Sodium 140 Potassium 4.3 Chloride 107 Carbon Dioxide 27.9 Anion Gap 9.4 BUN 16.0 Creatinine 0.72 Est GFR ( Amer) >60 Est GFR (Non-Af Amer) >60 BUN/Creatinine Ratio 22.2 Glucose 108 H Calcium 8.3 L Magnesium 2.0 Total Bilirubin 0.5 AST 46 H ALT 37 Alkaline Phosphatase 49 Total Protein 6.2 L Albumin 3.2 L Globulin 3.0 Albumin/Globulin Ratio 1.1 Specimen Source Blood A.calcoaceticus-baumannii cmplx PCR Not detected Bacteroides fragilis Not detected Kirstie albicans (PCR) Not detected Kirstie auris (PCR) Not detected C. glabrata (PCR) Not detected C. krusei (PCR) Not detected C. parapsilosis (PCR) Not detected C. tropicalis (PCR) Not detected C. neoform/gattii (PCR) Not detected Enterobacterales (PCR) Not detected E. cloacae complex PCR Not detected Enterococc faecalis PCR Not detected Enterococc faecium PCR Not detected E. coli (PCR) Not detected H. influenzae (PCR) Not detected Klebsiella aerogenes (PCR) Not detected Klebsiella oxytoca PCR Not detected K. pneumoniae group (PCR) Not detected List. monocytogenes PCR Not detected N. meningitidis (PCR) Not detected Proteus spp. (copies/mL) Not detected Salmonella spp. (PCR) Not detected Serratia marcescens PCR Not detected Staphylococcus sp PCR Not detected Staph aureus (PCR) Not detected mecA/C & MREJ Resist Gene Not applicable mecA/C-Methicil Resis Gene Not applicable mcr-1 Colistin Res Gene PCR Not applicable Staph epidermidis (PCR) Not detected Staph lugdunensis (TEM-PCR) Not detected S. maltophilia (PCR) Not detected Streptococcus sp PCR Not detected Strep agalactiae (PCR) Not detected Strep pneumoniae (PCR) Not detected S. pyogenes (PCR) Not detected P. aeruginosa (PCR) Not detected Michael/B-Vanco Res Genes Not applicable blaIMP Car res Gene PCR Not applicable KPC (blaKPC) Detect PCR Not applicable NDM (blaNDM) Detect PCR Not applicable OXA-48 Carbapenem Resis Gene (PCR) Not applicable blaVIM Car Res Gene PCR Not applicable CTX-M ESBL (PCR) Not applicable Preliminary micro results at discharge 11/06/24 23:15 Blood Culture Result 1 - Preliminary Blood - Left Forearm Discharge Plan Discharge Disposition: Home, Self-Care Condition: Good Discharge Medications: No Action No Known Home Medications Print Language: Swiss Activity Restrictions/Additional Instructions: Stay hydrated and avoid exposure to sun/heat as much as possible See your PCP in 1 week Forms: Portal Instructions
--- NOTE | 2024-11-10 08:44 | CM.DCFOLLOWU ---
1st attempt 11/10/24, no answer
--- NOTE | 2024-11-11 14:23 | CM.DCFOLLOWU ---
2nd attempt 11/11/24, no answer
--- NOTE | 2024-11-12 13:25 | CM.DCFOLLOWU ---
3rd attempt 11/12/24, spoke with family member not on contact list and advised to have pt call back
== END 2024-11-08 10:05 | disposition home or self-care (01) | DRG 683 ==
LOC: ER 21:16 → MS 21:27
PROVIDERS: Physician Assistant; Admitting Provider Internal Medicine; Emergency Provider Emergency Medicine; Visit Provider Student in an Organized Health Care Education/Training Program
DX: N17.9 Acute kidney failure, unspecified (principal); M62.82 Rhabdomyolysis; E86.0 Dehydration; R79.89 Other specified abnormal findings of blood chemistry; E83.52 Hypercalcemia; R11.2 Nausea with vomiting, unspecified
CPT/HCPCS: 36415; 71045; 74176; 80053; 81001; 82550; 83690; 83735; 85025; 85610; 87040; 87077; 87086; 87150; 93005; 96361; 96374; 99285; J0696; J1644; J2405